=== PATIENT | male | born 1950 | race Caucasian/White ===

== ENCOUNTER 2017-11-12 06:21 | Inpatient (IN) | payer OTHER, MEDICARE ==
[~2017-11-12] VITALS: Ht 182.9 cm; Wt 69.5 kg
[~2017-11-12 06:21] MED LIST: AMLO5 PO; ASPI81CH PO; CALACE667G PO; CALCAVITD PO; CALCAVITDA PO; CIPR250 PO; CYCL25 PO; CYCLOPHOSPHAMIDE PO; Calcium Acetat667 MG PO; Cipro500 MG PO; DAPS100 PO; FAMO20 PO; LORA.5 PO; LOSA50 PO; METPRE4DP PO; OMEP20ER PO; OMEPRAZOLE MAGN20 MG PO; ONDA4 PO; PRED20 PO; QUET25 PO; RENAL VITAMIN0.8 MG PO; SERT100 PO; SERT25 PO; Super B-50 Com1 EACH PO; [UNRECOGNIZED DRUG - OTHER] PO
[2017-11-12 07:00] LABS: BASOPHILS ABSOLUTE AUTO 0.03 K/mm3 (0.00-0.23); BASOPHILS PERCENT AUTO 0 % (0-2); EOSINOPHILS PERCENT AUTO 0 % (0-6); Hematocrit 31.8 % (37.0-53.0); Hemoglobin 10.1 g/dL (13.5-17.5); IMMATURE GRAN ABSOLUTE AUTO 0.03 K/mm3 (0.00-0.10); IMMATURE GRAN PERCENT AUTO 0 % (0-1); LYMPHOCYTES ABSOLUTE AUTO 0.39 K/mm3 (0.84-5.20); LYMPHOCYTES PERCENT AUTO 5 % (21-46); MONOCYTES ABSOLUTE AUTO 0.47 K/mm3 (0.16-1.47); MONOCYTES PERCENT AUTO 5 % (4-13); Mean Corpuscular HGB 31.8 pg (26.0-34.0); Mean Corpuscular HGB Conc 31.8 g/dL (31.5-36.5); Mean Corpuscular Volume 100 fL (80-100); NEUTROPHILS ABSOLUTE AUTO 7.82 K/mm3 (1.96-9.15); NEUTROPHILS PERCENT AUTO 90 % (41-73); Platelet Count 253 K/mm3 (150-400); Red Blood Cell Count 3.18 M/mm3 (4.30-5.90); White Blood Cell Count 8.74 K/mm3 (4.00-11.30)
[2017-11-12 07:25] LABS: Magnesium, Blood 2.4 mg/dL (1.6-2.4); Troponin I 0.334 ng/mL (0.000-0.040)
[2017-11-12 07:30] LABS: Albumin, Blood 3.5 g/dL (3.4-5.0); Albumin/Globulin Ratio 0.8 (0.8-1.8); Bilirubin, Total 0.6 mg/dL (0.1-1.0); Bun/Creatinine Ratio 6.7 (12.0-20.0); Calcium, Blood 9.4 mg/dL (8.5-10.1); Creatinine, Blood 13.9 mg/dL (0.60-1.20); Globulin, Blood 4.3 g/dL (2.2-4.0); Phosphorus, Blood 4.1 mg/dL (2.5-4.9); Potassium, Blood 4.9 mmol/L (3.5-5.5); Total Protein, Blood 7.8 g/dL (6.4-8.2)
[2017-11-12 07:59] LABS: Influenza A Negative (NEGATIVE); Influenza B Negative (NEGATIVE)
[2017-11-13 05:36] LABS: BASOPHILS ABSOLUTE AUTO 0.03 K/mm3 (0.00-0.23); BASOPHILS PERCENT AUTO 0 % (0-2); EOSINOPHILS PERCENT AUTO 0 % (0-6); Hematocrit 28.2 % (37.0-53.0); Hemoglobin 8.9 g/dL (13.5-17.5); IMMATURE GRAN ABSOLUTE AUTO 0.02 K/mm3 (0.00-0.10); IMMATURE GRAN PERCENT AUTO 0 % (0-1); LYMPHOCYTES ABSOLUTE AUTO 0.48 K/mm3 (0.84-5.20); LYMPHOCYTES PERCENT AUTO 7 % (21-46); MONOCYTES ABSOLUTE AUTO 0.49 K/mm3 (0.16-1.47); MONOCYTES PERCENT AUTO 7 % (4-13); Mean Corpuscular HGB 31.3 pg (26.0-34.0); Mean Corpuscular HGB Conc 31.6 g/dL (31.5-36.5); Mean Corpuscular Volume 99 fL (80-100); Mean Platelet Volume 11.5 fL (9.1-12.4); NEUTROPHILS ABSOLUTE AUTO 6.35 K/mm3 (1.96-9.15); NEUTROPHILS PERCENT AUTO 86 % (41-73); Platelet Count 217 K/mm3 (150-400); RDW Coefficient Variation 15.1 % (11.7-14.2); RDW Standard Deviation 55.5 fL (35.1-46.3); Red Blood Cell Count 2.84 M/mm3 (4.30-5.90); White Blood Cell Count 7.37 K/mm3 (4.00-11.30)
[2017-11-13 06:18] LABS: Albumin, Blood 3.1 g/dL (3.4-5.0); Anion Gap 13 mmol/L (6-16); Blood Urea Nitrogen 73 mg/dL (8-24); Bun/Creatinine Ratio 6.3 (12.0-20.0); CO2, Blood 25 mmol/L (21-32); Calcium, Blood 8.4 mg/dL (8.5-10.1); Chloride, Blood 92 mmol/L (98-108); Glomerular Filtration Rate 5 (60-); Glucose, Blood 105 mg/dL (70-99); Phosphorus, Blood 4.9 mg/dL (2.5-4.9); Potassium, Blood 5.2 mmol/L (3.5-5.5); Sodium, Blood 130 mmol/L (136-145)
[2017-11-13 08:16] LABS: CHOL/HDL RATIO 2.8; Cholesterol 113 mg/dL (50-200); HDL Cholesterol 40 mg/dL (>39); LDL/HDL RATIO 1.2; Low Density Lipoprotein Chol 46 mg/dL (0-110); Triglycerides 133 mg/dL (30-160); Very Low Density Lipoprot Chol 26 mg/dL (6-32)
[2017-11-14 04:52] LABS: Source, Urine Voided
[2017-11-14 04:54] LABS: Bilirubin, Urine Neg (Neg); Blood, Urine 2+ (Neg); Glucose Qualitative, Urine Neg (Neg); Ketones, Urine Neg (Neg); Leukocyte Esterase, Urine Neg (Neg); Nitrite, Urine Neg (Neg); Protein, Urine 3+ (Neg); Urobilinogen, Urine NORM (Normal)
[2017-11-14 05:17] LABS: Appearance, Urine Clear (Clear); Color, Urine Yellow (P-Yellow)
[2017-11-14 05:20] LABS: Bacteria Not Seen /hpf; Red Blood Cells, Urine 0-2 /hpf (0-2); Squamous Epithelial Cells Not Seen /hpf (Few); White Blood Cells, Urine 0-2 /hpf (0-5)
[2017-11-14 05:29] LABS: BASOPHILS ABSOLUTE AUTO 0.02 K/mm3 (0.00-0.23); BASOPHILS PERCENT AUTO 0 % (0-2); EOSINOPHILS PERCENT AUTO 0 % (0-6); Hematocrit 30.6 % (37.0-53.0); Hemoglobin 9.8 g/dL (13.5-17.5); IMMATURE GRAN ABSOLUTE AUTO 0.05 K/mm3 (0.00-0.10); IMMATURE GRAN PERCENT AUTO 1 % (0-1); LYMPHOCYTES ABSOLUTE AUTO 1.03 K/mm3 (0.84-5.20); LYMPHOCYTES PERCENT AUTO 14 % (21-46); MONOCYTES ABSOLUTE AUTO 0.59 K/mm3 (0.16-1.47); MONOCYTES PERCENT AUTO 8 % (4-13); Mean Corpuscular HGB 31.3 pg (26.0-34.0); Mean Corpuscular Volume 98 fL (80-100); Mean Platelet Volume 11.6 fL (9.1-12.4); NEUTROPHILS ABSOLUTE AUTO 5.76 K/mm3 (1.96-9.15); NEUTROPHILS PERCENT AUTO 77 % (41-73); Platelet Count 232 K/mm3 (150-400); RDW Standard Deviation 54.4 fL (35.1-46.3); Red Blood Cell Count 3.13 M/mm3 (4.30-5.90); White Blood Cell Count 7.45 K/mm3 (4.00-11.30)
[2017-11-14 06:05] LABS: Magnesium, Blood 2.3 mg/dL (1.6-2.4)
[2017-11-14 06:20] LABS: Anion Gap 15 mmol/L (6-16); Blood Urea Nitrogen 69 mg/dL (8-24); CO2, Blood 26 mmol/L (21-32); Calcium, Blood 8.3 mg/dL (8.5-10.1); Chloride, Blood 92 mmol/L (98-108); Glucose, Blood 105 mg/dL (70-99); Phosphorus, Blood 6.2 mg/dL (2.5-4.9); Potassium, Blood 4.6 mmol/L (3.5-5.5); Sodium, Blood 133 mmol/L (136-145)
[2017-11-14 06:23] LABS: Bun/Creatinine Ratio 6.7 (12.0-20.0); Glomerular Filtration Rate 5 (60-)
[2017-11-14] MEDS ORDERED: ACET325 PO (09:02)
[2017-11-14] MEDS ORDERED: ALBU90OI INH (09:03)
[2017-11-14] MEDS ORDERED: ONDA4 PO (09:04)
[2017-11-14] MEDS ORDERED: LEVO750 PO (09:04)
[2017-11-14] MEDS ORDERED: SACC250C PO (09:04)
[2017-11-14] MEDS ORDERED: PROM25 PO (09:05)
[2017-11-14] MEDS ORDERED: FURO20 PO (15:31)
[2017-11-14 18:19] LABS: HCV Non Reactive (NR)
[2017-12-15] MEDS ORDERED: CARV3.125 PO (11:55)
== END 2017-11-14 16:15 | disposition home or self-care (01) | DRG 291 ==
LOC: ER 06:21 → MEDS 09:12 → ENPENDDIS 11-14 09:15 → MEDS 11-14 16:15
PROVIDERS: Internal Medicine
DX: I13.2 Hypertensive heart and chronic kidney disease with heart failure and with stage 5 chronic kidney disease, or end stage renal disease (principal); N18.6 End stage renal disease; J18.9 Pneumonia, unspecified organism; I50.21 Acute systolic (congestive) heart failure; N17.9 Acute kidney failure, unspecified; M30.0 Polyarteritis nodosa; I12.0 Hypertensive chronic kidney disease with stage 5 chronic kidney disease or end stage renal disease; D63.1 Anemia in chronic kidney disease; Z99.2 Dependence on renal dialysis; Z91.15 Patient's noncompliance with renal dialysis; E83.39 Other disorders of phosphorus metabolism; Z87.891 Personal history of nicotine dependence
CPT/HCPCS: 36415; 71046; 74176; 80053; 80061; 80069; 80074; 81001; 83605; 83690; 83735; 83880; 84100; 84484; 85025; 86706; 87040; 87086; 87804; 93005; 93010; 93306; 94640; 94760; 96365; 96375; 96376; 99285; C9113; J0456; J0696; J0881; J1650; J2405; J2550; J7050; J7120

== ENCOUNTER 2017-12-16 02:19 | Observation (INO) | payer OTHER, MEDICARE ==
[~2017-12-16] VITALS: Ht 182.9 cm; Wt 70.7 kg
[~2017-12-16 02:19] MED LIST changes: +ACET325 PO; +ALBU90OI INH; +CARV3.125 PO; +FURO20 PO; +LEVO750 PO; +PROM25 PO; +SACC250C PO
[2017-12-17 03:49] LABS: Hematocrit 26.7 % (37.0-53.0); Hemoglobin 8.4 g/dL (13.5-17.5)
[2017-12-17 04:08] LABS: Albumin, Blood 2.5 g/dL (3.4-5.0); Anion Gap 10 mmol/L (6-16); Blood Urea Nitrogen 43 mg/dL (8-24); Bun/Creatinine Ratio 6.2 (12.0-20.0); CO2, Blood 30 mmol/L (21-32); Calcium, Blood 8.6 mg/dL (8.5-10.1); Chloride, Blood 99 mmol/L (98-108); Creatinine, Blood 6.88 mg/dL (0.60-1.20); Glomerular Filtration Rate 9 (60-); Glucose, Blood 97 mg/dL (70-99); Magnesium, Blood 2.1 mg/dL (1.6-2.4); Phosphorus, Blood 3.6 mg/dL (2.5-4.9); Potassium, Blood 4.1 mmol/L (3.5-5.5); Sodium, Blood 139 mmol/L (136-145)
[2017-12-17] MEDS ORDERED: CLOP75 PO (11:10)
[2017-12-17] MEDS ORDERED: ATOR40TA PO (11:11)
== END 2017-12-17 14:00 | disposition home or self-care (01) ==
LOC: MHTC 02:19 → ICUW 08:47 → MHTC 09:09 → ICUW 09:09
PROVIDERS: Internal Medicine Nephrology
DX: I13.2 Hypertensive heart and chronic kidney disease with heart failure and with stage 5 chronic kidney disease, or end stage renal disease (principal); I50.22 Chronic systolic (congestive) heart failure; N18.6 End stage renal disease; I25.10 Atherosclerotic heart disease of native coronary artery without angina pectoris; N25.81 Secondary hyperparathyroidism of renal origin; R94.39 Abnormal result of other cardiovascular function study; E86.9 Volume depletion, unspecified; E88.09 Other disorders of plasma-protein metabolism, not elsewhere classified; Z99.2 Dependence on renal dialysis; Z79.82 Long term (current) use of aspirin; Z79.02 Long term (current) use of antithrombotics/antiplatelets; Z79.899 Other long term (current) drug therapy; Z87.891 Personal history of nicotine dependence
CPT/HCPCS: 36415; 36430; 80069; 83735; 85014; 85018; 85347; 86850; 86900; 86901; 86923; 92978; 93005; 93010; 93460; 93571; 96372; 99152; 99153; C1725; C1769; C1874; C1894; C9600; G0257; G0378; J0360; J0881; J1644; J2250; J2720; J3010; J7030; P9016; Q9967

== ENCOUNTER → 2018-01-11 | Outpatient (CLI) | payer MEDICARE, OTHER ==
[~2018-01-11] MED LIST changes: +ATOR40TA PO; +CLOP75 PO
[2018-01-11 16:17] LABS: Hematocrit 27.3 % (37.0-53.0); Hemoglobin 8.7 g/dL (13.5-17.5)
== END | disposition home or self-care (01) ==
LOC: LAB DAV 16:10 → LAB SHORT 16:10
PROVIDERS: Internal Medicine Nephrology
DX: D64.9 Anemia, unspecified (principal)
CPT/HCPCS: 85014; 85018

== ENCOUNTER 2018-12-27 09:05 | Inpatient (IN) | payer MEDICARE, OTHER ==
[~2018-12-27] VITALS: Ht 180.3 cm; Wt 61.1 kg
[~2018-12-27 09:05] MED LIST changes: +CETI5 PO; +PANT40 PO
--- NOTE | 2018-12-27 09:50 | NUR ---
PATIENT GAVE PERMISSION FOR ME TO CARE FOR HIM TODAY 12/27/18. History, Chart, Medications and Allergies reviewed before start of procedure.Patient confirms NPO status and agrees with scheduled surgery. Patient reports completing Chlorhexadine shower X2 prior to admission to hospital.Surgical site prepped with 2% Chlorhexidine cloth wipe.COARSE LUNGS SOUNDS BILATERALLY UPPER LOBES.
--- NOTE | 2018-12-27 11:11 | NUR ---
STUDENT RN ASSISTING WITH PREOP CARE THIS AM. AGREE WITH HER CHARTING AND CARE.
--- NOTE | 2018-12-27 13:47 | NUR ---
12/27/18 1347 Andrei Belle ANESTHESIA WAS INITIALLY A SPINAL BUT PATIENT DID NOT TOLERATE SURGERY SO DR. CRUZ PLACED A LMA
--- NOTE | 2018-12-27 19:21 | NUR ---
SHIFT SUMMARY PT HAS STRUGGLED WITH N/V POST OP. SURG SITE WNL. SOME RESIDUAL NUMBNESS/TING IN LLE. BUT C/O 8/10 PAIN IN L HIP.
[2018-12-28 05:51] LABS: BASOPHILS ABSOLUTE AUTO 0.02 K/mm3 (0.00-0.23); BASOPHILS PERCENT AUTO 0 % (0-2); EOSINOPHILS ABSOLUTE AUTO 0.13 K/mm3 (0.00-0.68); EOSINOPHILS PERCENT AUTO 1 % (0-6); Hematocrit 30.7 % (37.0-53.0); Hemoglobin 9.5 g/dL (13.5-17.5); IMMATURE GRAN ABSOLUTE AUTO 0.05 K/mm3 (0.00-0.10); IMMATURE GRAN PERCENT AUTO 0 % (0-1); LYMPHOCYTES ABSOLUTE AUTO 0.57 K/mm3 (0.84-5.20); LYMPHOCYTES PERCENT AUTO 5 % (21-46); MONOCYTES ABSOLUTE AUTO 1.19 K/mm3 (0.16-1.47); MONOCYTES PERCENT AUTO 10 % (4-13); Mean Corpuscular HGB Conc 30.9 g/dL (31.5-36.5); Mean Platelet Volume 10.8 fL (9.1-12.4); NEUTROPHILS ABSOLUTE AUTO 10.52 K/mm3 (1.96-9.15); NEUTROPHILS PERCENT AUTO 84 % (41-73); Platelet Count 253 K/mm3 (150-400); RDW Coefficient Variation 16.6 % (11.7-14.2); RDW Standard Deviation 59.2 fL (35.1-46.3); Red Blood Cell Count 3.17 M/mm3 (4.30-5.90); White Blood Cell Count 12.48 K/mm3 (4.00-11.30)
[2018-12-28 05:52] LABS: Mean Corpuscular Volume 97 fL (80-100)
[2018-12-28 06:19] LABS: Magnesium, Blood 2.1 mg/dL (1.6-2.4)
[2018-12-28 06:24] LABS: Bun/Creatinine Ratio 9.2 (12.0-20.0); Calcium, Blood 9.2 mg/dL (8.5-10.1); Creatinine, Blood 9.36 mg/dL (0.60-1.20); Potassium, Blood 5.4 mmol/L (3.5-5.5)
--- NOTE | 2018-12-28 07:29 | NUR ---
SHIFT SUMMARY PT IS POD 1 ELECTIVE LEFT PAMELA. MEDICATED FOR PAIN OVERNIGHT PER EMAR. HE DID HAVE SOME NAUSEA EARLY IN THE EVENING AND THEN AGAIN THIS MORNING WHEN HE GOT UP. HE IS AN ESRD AND HD PATIENT AND REPORTS HE ONLY URINATES TWICE A DAY AT BASELINE AND HE DID NOT PEE LAST NIGHT AT ALL. GOT HIM UP THIS MORNING TO TRY TO ASSIST WITHOUT RESULTS. BLADDER SCAN WAS 367ML THIS AM, HE RAN GENTLE HYDRATION OF 50ML/HR OVERNIGHT. THIS WAS PASSED ON TO DAY SHIFT, HE WILL BE STRAIGHT CATH'D IF HE STILL CANNOT VOID. DRESSING CHANGED TO AQUACEL THIS AM WITH AMELIA'S ROUNDS. REPORT PASSED TO ONCOMING SHIFT.
[2018-12-28] MEDS ORDERED: Percocet 5-3251 EACH PO (14:36)
[2018-12-28] MEDS ORDERED: Vancocin HCL1000 M1 (14:36)
[2018-12-28] MEDS ORDERED: ANCEF 1 GM1 GM/50 ML (14:37)
--- NOTE | 2018-12-28 15:45 | NUR ---
DISCHARGE PT HAS CLEARED THERAPY, DRSGS & SCRIPTS GIVEN, VOIDED ONCE, CONTACTED DIALYSIS AND FAXED ORDER. DR GRANADOS TO DOSE [facility] AND [facility] PER THEIR POLICY. AND PT STATES UNDERSTANDING.
== END 2018-12-28 15:35 | disposition home or self-care (01) | DRG 469 ==
LOC: SURS 09:05 → PRE IP 10:30 → SURS 13:53
PROVIDERS: ADMIT Orthopaedic Surgery
PROC: 5A1D70Z Performance of Urinary Filtration, Intermittent, Less than 6 Hours Per Day (ICD-10-PCS; 2018-12-27)
PROC: 0SRB04A Replacement of Left Hip Joint with Ceramic on Polyethylene Synthetic Substitute, Uncemented, Open Approach (ICD-10-PCS; principal; 2018-12-27 10:30)
DX: M16.12 Unilateral primary osteoarthritis, left hip (principal); N18.6 End stage renal disease; Z99.2 Dependence on renal dialysis; I50.9 Heart failure, unspecified; J43.9 Emphysema, unspecified; F32.9 Major depressive disorder, single episode, unspecified; F41.9 Anxiety disorder, unspecified; Z87.891 Personal history of nicotine dependence; I25.10 Atherosclerotic heart disease of native coronary artery without angina pectoris; Z95.5 Presence of coronary angioplasty implant and graft
CPT/HCPCS: 36415; 72170; 80048; 83735; 84132; 85025; 88300; 88304; 97110; 97116; 97162; 97165; 97530; 97535; C1713; C1776; J0171; J0690; J1170; J1885; J2250; J2405; J2704; J2795; J3010; J3370; J7030

== ENCOUNTER → 2018-12-30 | Outpatient (CLI) | payer MEDICARE, OTHER ==
[~2018-12-30] MED LIST changes: +ANCEF 1 GM1 GM/50 ML; +Percocet 5-3251 EACH PO; +Vancocin HCL1000 M1
[2018-12-30 14:51] LABS: Vancomycin, Random 7.6 ug/mL
== END | disposition home or self-care (01) ==
LOC: LAB SHORT 14:00 → LAB 14:00
PROVIDERS: Internal Medicine Nephrology
DX: N18.6 End stage renal disease (principal)
CPT/HCPCS: 80202

== ENCOUNTER 2019-02-06 08:00 | Day surgery (SDC) | payer MEDICARE, OTHER ==
[2019-05-15] MEDS ORDERED: Aspir 8181 MG PO (11:57)
[2019-05-15] MEDS ORDERED: Seroquel50 MG PO (11:58)
[2019-05-15] MEDS ORDERED: Coreg12.5 MG PO (11:59)
[2019-05-15] MEDS ORDERED: CLOP75 PO (12:00)
[2019-05-15] MEDS ORDERED: ATOR10 PO (12:00)
== END 2019-02-06 15:00 | disposition home or self-care (01) ==
LOC: ATC 08:00
DX: N18.6 End stage renal disease (principal); D63.1 Anemia in chronic kidney disease
CPT/HCPCS: 36415; 36430; 86850; 86900; 86901; 86923; J7050; P9016

== ENCOUNTER 2019-02-19 14:58 | Emergency (ER) | payer MEDICARE, OTHER ==
[2019-05-15] MEDS ORDERED: Aspir 8181 MG PO (11:57)
[2019-05-15] MEDS ORDERED: Seroquel50 MG PO (11:58)
[2019-05-15] MEDS ORDERED: Coreg12.5 MG PO (11:59)
[2019-05-15] MEDS ORDERED: ATOR10 PO (12:00)
[2019-05-15] MEDS ORDERED: CLOP75 PO (12:00)
== END 2019-02-19 15:55 | disposition left against medical advice (07) ==
LOC: ER 14:58
DX: Z53.21 Procedure and treatment not carried out due to patient leaving prior to being seen by health care provider (principal)

== ENCOUNTER → 2019-04-09 | Outpatient (CLI) | payer MEDICARE, OTHER ==
[~2019-04-09] MED LIST changes: +ATOR10 PO; +Aspir 8181 MG PO; +CARV6.25 PO; +Coreg12.5 MG PO; +Doxycycline Hy100 MG; +ESCI10 PO; +FURO40 PO; +METO25 PO; +MYCO250 PO; +Norco 5-325 Ta1 EACH PO; +OMEPRAZOLE20 MG PO; +POTA10T PO; +Seroquel50 MG PO; +TRAM50 PO
== END | disposition home or self-care (01) ==
LOC: LAB SHORT 07:44 → PLD 07:44
DX: L30.8 Other specified dermatitis (principal)
CPT/HCPCS: 88305; 88312

== ENCOUNTER 2019-05-02 08:02 | Day surgery (SDC) | payer MEDICARE, OTHER ==
[~2019-05-02] VITALS: Ht 180.3 cm; Wt 63.6 kg
[~2019-05-02 08:02] MED LIST changes: -ATOR10 PO; -Aspir 8181 MG PO; -CARV6.25 PO; -Coreg12.5 MG PO; -Doxycycline Hy100 MG; -ESCI10 PO; -FURO40 PO; -METO25 PO; -MYCO250 PO; -Norco 5-325 Ta1 EACH PO; -OMEPRAZOLE20 MG PO; -POTA10T PO; -Seroquel50 MG PO; -TRAM50 PO
[2019-05-15] MEDS ORDERED: Aspir 8181 MG PO (11:57)
[2019-05-15] MEDS ORDERED: Seroquel50 MG PO (11:58)
[2019-05-15] MEDS ORDERED: Coreg12.5 MG PO (11:59)
[2019-05-15] MEDS ORDERED: CLOP75 PO (12:00)
[2019-05-15] MEDS ORDERED: ATOR10 PO (12:00)
== END 2019-05-02 10:25 | disposition home or self-care (01) ==
LOC: ORSCSDS 08:02
PROVIDERS: Ophthalmology
PROC: 08RJ3JZ Replacement of Right Lens with Synthetic Substitute, Percutaneous Approach (ICD-10-PCS; principal; 2019-05-02 09:30)
DX: H25.11 Age-related nuclear cataract, right eye (principal); E11.9 Type 2 diabetes mellitus without complications; E03.9 Hypothyroidism, unspecified; Z87.891 Personal history of nicotine dependence; Z79.899 Other long term (current) drug therapy
CPT/HCPCS: 82947; J2001; J2250; J3010; J3301; J7030; J7120; V2632

== ENCOUNTER 2019-05-23 06:50 | Day surgery (SDC) | payer MEDICARE, OTHER ==
[~2019-05-23] VITALS: Ht 180.3 cm; Wt 61.8 kg
[~2019-05-23 06:50] MED LIST changes: +ATOR10 PO; +Aspir 8181 MG PO; +Coreg12.5 MG PO; +Seroquel50 MG PO
== END 2019-05-23 08:35 | disposition home or self-care (01) ==
LOC: ORSCSDS 06:50
PROVIDERS: Ophthalmology
PROC: 08RK3JZ Replacement of Left Lens with Synthetic Substitute, Percutaneous Approach (ICD-10-PCS; principal; 2019-05-23 08:00)
DX: H25.12 Age-related nuclear cataract, left eye (principal); I10 Essential (primary) hypertension; Z79.82 Long term (current) use of aspirin; Z79.899 Other long term (current) drug therapy
CPT/HCPCS: J2001; J2250; J2405; J3010; J3301; J7120; V2632

== ENCOUNTER 2019-06-08 11:46 | Emergency (ER) | payer OTHER, MEDICARE ==
[~2019-06-08] VITALS: Ht 180.3 cm; Wt 61.2 kg
[2019-06-08] MEDS ORDERED: Doxycycline Hy100 MG (13:00)
[2019-06-08 14:10] LABS: BASOPHILS ABSOLUTE AUTO 0.06 K/mm3 (0.00-0.23); BASOPHILS PERCENT AUTO 1 % (0-2); EOSINOPHILS ABSOLUTE AUTO 0.93 K/mm3 (0.00-0.68); EOSINOPHILS PERCENT AUTO 11 % (0-6); Hematocrit 27.8 % (37.0-53.0); Hemoglobin 8.8 g/dL (13.5-17.5); IMMATURE GRAN ABSOLUTE AUTO 0.04 K/mm3 (0.00-0.10); IMMATURE GRAN PERCENT AUTO 1 % (0-1); LYMPHOCYTES ABSOLUTE AUTO 1.22 K/mm3 (0.84-5.20); LYMPHOCYTES PERCENT AUTO 15 % (21-46); MONOCYTES ABSOLUTE AUTO 0.76 K/mm3 (0.16-1.47); MONOCYTES PERCENT AUTO 9 % (4-13); Mean Corpuscular HGB Conc 31.7 g/dL (31.5-36.5); Mean Corpuscular Volume 101 fL (80-100); Mean Platelet Volume 10.5 fL (9.1-12.4); NEUTROPHILS ABSOLUTE AUTO 5.29 K/mm3 (1.96-9.15); NEUTROPHILS PERCENT AUTO 64 % (41-73); Platelet Count 266 K/mm3 (150-400); RDW Coefficient Variation 17.4 % (11.7-14.2); RDW Standard Deviation 63.2 fL (35.1-46.3); Red Blood Cell Count 2.75 M/mm3 (4.30-5.90)
[2019-06-08 14:37] LABS: Bun/Creatinine Ratio 16.5 (12.0-20.0); Calcium, Blood 9.6 mg/dL (8.5-10.1); Creatinine, Blood 9.77 mg/dL (0.60-1.20); Potassium, Blood 4.3 mmol/L (3.5-5.5)
[2019-06-08] MEDS ORDERED: FURO40 PO (14:55)
[2019-06-08] MEDS ORDERED: METO25 PO (14:55)
[2019-06-08] MEDS ORDERED: ESCI10 PO (14:55)
[2019-06-08] MEDS ORDERED: OMEPRAZOLE20 MG PO (14:56)
[2019-06-08] MEDS ORDERED: MYCO250 PO (14:56)
[2019-06-08] MEDS ORDERED: POTA10T PO (14:56)
[2019-06-08] MEDS ORDERED: TRAM50 PO (14:57)
[2019-06-08] MEDS ORDERED: PRED20 PO (14:57)
[2019-06-08] MEDS ORDERED: Norco 5-325 Ta1 EACH PO (15:09)
[2019-06-08] MEDS ORDERED: CARV6.25 PO (15:19)
== END 2019-06-08 16:04 | disposition home or self-care (01) ==
LOC: ER 11:46
PROVIDERS: Emergency Medicine
DX: I72.1 Aneurysm of artery of upper extremity (principal); M96.840 Postprocedural hematoma of a musculoskeletal structure following a musculoskeletal system procedure; I12.0 Hypertensive chronic kidney disease with stage 5 chronic kidney disease or end stage renal disease; N18.6 End stage renal disease; Z99.2 Dependence on renal dialysis; Z87.891 Personal history of nicotine dependence; Z91.048 Other nonmedicinal substance allergy status; Z79.899 Other long term (current) drug therapy; Z79.82 Long term (current) use of aspirin; Z79.02 Long term (current) use of antithrombotics/antiplatelets
CPT/HCPCS: 36415; 76882; 80048; 85025; 96374; 96375; 99284-25; J2405; J3010

== ENCOUNTER 2019-08-01 11:31 | Inpatient (IN) | payer MEDICARE, OTHER ==
[~2019-08-01] VITALS: Ht 180.3 cm; Wt 60.2 kg
[~2019-08-01 11:31] MED LIST changes: -ATOR10 PO; -Aspir 8181 MG PO; -Calcium Acetat667 MG PO; +Doxycycline Hy100 MG; +ESCI10 PO; +FURO40 PO; -LOSA50 PO; +METO25 PO; +MYCO250 PO; +Norco 5-325 Ta1 EACH PO; +OMEPRAZOLE20 MG PO; +POTA10T PO; -RENAL VITAMIN0.8 MG PO; -SERT100 PO; -Seroquel50 MG PO; +TRAM50 PO
[2019-08-01 12:50] LABS: Calcium, Ionized (POC) 1.07 mmol/L (1.10-1.46); Chloride (POC) 91 mmol/L (98-108); Creatinine (POC) 10.7 mg/dL (0.8-1.3); Glucose (ISTAT POC) 106 mg/dL (70-99); Hemoglobin (POC) 12.9 g/dL (13.5-17.5); Potassium (POC) 4.3 mmol/L (3.5-5.5); Sodium (POC) 136 mmol/L (135-148); Total CO2 (POC) 36 mmol/L (21-32)
[2019-08-01 12:56] LABS: BASOPHILS ABSOLUTE AUTO 0.04 K/mm3 (0.00-0.23); BASOPHILS PERCENT AUTO 0 % (0-2); EOSINOPHILS ABSOLUTE AUTO 0.74 K/mm3 (0.00-0.68); EOSINOPHILS PERCENT AUTO 8 % (0-6); Hematocrit 37.5 % (37.0-53.0); Hemoglobin 11.5 g/dL (13.5-17.5); IMMATURE GRAN ABSOLUTE AUTO 0.03 K/mm3 (0.00-0.10); IMMATURE GRAN PERCENT AUTO 0 % (0-1); LYMPHOCYTES ABSOLUTE AUTO 0.76 K/mm3 (0.84-5.20); LYMPHOCYTES PERCENT AUTO 8 % (21-46); MONOCYTES ABSOLUTE AUTO 1.26 K/mm3 (0.16-1.47); MONOCYTES PERCENT AUTO 13 % (4-13); Mean Corpuscular HGB 31.8 pg (26.0-34.0); Mean Corpuscular HGB Conc 30.7 g/dL (31.5-36.5); Mean Corpuscular Volume 104 fL (80-100); Mean Platelet Volume 10.3 fL (9.1-12.4); NEUTROPHILS ABSOLUTE AUTO 6.67 K/mm3 (1.96-9.15); NEUTROPHILS PERCENT AUTO 70 % (41-73); Platelet Count 272 K/mm3 (150-400); RDW Coefficient Variation 14.9 % (11.7-14.2); RDW Standard Deviation 57.2 fL (35.1-46.3); Red Blood Cell Count 3.62 M/mm3 (4.30-5.90)
[2019-08-01 13:34] LABS: Albumin, Blood 3.7 g/dL (3.4-5.0); Albumin/Globulin Ratio 0.9 (0.8-1.8); Bilirubin, Total 0.5 mg/dL (0.1-1.0); Bun/Creatinine Ratio 11.5 (12.0-20.0); Creatinine, Blood 9.63 mg/dL (0.60-1.20); Globulin, Blood 3.9 g/dL (2.2-4.0); Potassium, Blood 4.2 mmol/L (3.5-5.5); Total Protein, Blood 7.6 g/dL (6.4-8.2)
[2019-08-01] MEDS ORDERED: LOSA50 PO (14:17)
[2019-08-01] MEDS ORDERED: Oxycodone-Apap1 EAC3 PO (14:18)
[2019-08-01] MEDS ORDERED: ATOR10 PO (14:19)
[2019-08-01] MEDS ORDERED: TEMA15 PO (14:19)
[2019-08-01] MEDS ORDERED: CARVEDILOL12.5 MG PO (14:21)
[2019-08-01] MEDS ORDERED: PANTOPRAZOLE SO40 M2 PO (14:22)
[2019-08-01] MEDS ORDERED: Calcium Acetat667 MG PO (14:22)
[2019-08-01] MEDS ORDERED: Aspir 8181 MG PO (14:23)
[2019-08-01] MEDS ORDERED: LORA.5 PO (16:07)
[2019-08-01] MEDS ORDERED: Seroquel Xr50 MG PO (16:09)
--- NOTE | 2019-08-01 16:11 | NUR ---
ADMIT TO SURGICAL FLOOR PT ADMITTED TO SURGICAL FLOOR FROM ED AT 1530. SPOUSE AT BEDSIDE. ON 2L 02 WITH SPO2 AT 96%, DENIES SOB. REPORTS SOME N/V. DENIES ANY N/T. ABLE TO TRANSFER SELF FROM GURNEY TO BED. DENIES NEED FOR PAIN MEDICATION AND STATES PAIN IS TOLERABLE. CURRENTLY RESTING IN BED WITH CALL LIGHT IN REACH. WILL CONTINUE TO MONITOR WHILE AWAITING ORDERS.
[2019-08-01] MEDS ORDERED: SERT100 PO (17:04)
[2019-08-01] MEDS ORDERED: RENAL VITAMIN0.8 MG PO (17:05)
[2019-08-01] MEDS ORDERED: Cetirizine HCl10 MG PO (17:06)
[2019-08-01] MEDS ORDERED: HYDHCL25 PO (17:08)
[2019-08-01] MEDS ORDERED: BIOTIN5 MG PO (17:10)
[2019-08-01] MEDS ORDERED: FERRIC CITRATE210 MG PO (17:11)
--- NOTE | 2019-08-02 03:25 | NUR ---
PT HYPERVENTILATING WHILE SITTING IN CHAIR. O2 DROPPING INTO 60'S ON 4LO2. O2 INCREASED TO 8LO2 WHICH INCREASED SATS TO 90%. PT NAUSEATED AND VOMITING INTERMITENTING. PT DIAPHORETIC AND LETHARGIC. BP LOW FOR PT. HR ELEVATED. WILL CTM VS Q30MIN
[2019-08-02 03:56] LABS: Hematocrit 40.2 % (37.0-53.0); Hemoglobin 12.2 g/dL (13.5-17.5)
[2019-08-02 04:40] LABS: Albumin, Blood 3.6 g/dL (3.4-5.0); Anion Gap 22 mmol/L (6-16); Blood Urea Nitrogen 120 mg/dL (8-24); Bun/Creatinine Ratio 11.1 (12.0-20.0); CO2, Blood 24 mmol/L (21-32); Calcium, Blood 9.8 mg/dL (8.5-10.1); Chloride, Blood 90 mmol/L (98-108); Glomerular Filtration Rate 5 (60-); Glucose, Blood 135 mg/dL (70-99); Phosphorus, Blood 6.3 mg/dL (2.5-4.9); Potassium, Blood 4.7 mmol/L (3.5-5.5); Sodium, Blood 136 mmol/L (136-145)
--- NOTE | 2019-08-02 04:40 | NUR ---
PT BECOMING MORE LETHARGIC AND HYPOTENSIVE. BP 86/51. HR IN 90'S. O2 AT 90% ON 8LO2. SPOKE WITH DR. BARKLEY. NEW ORDER FOR STAT CHEST XRAY, EKG, H&H, TROPONINS AND 500CC BOLUS OF NS. INSTRUCTED TO TAKE ANOTHER BP AND CALL BACK.
--- NOTE | 2019-08-02 04:55 | NUR ---
PT AWAITING CHEST X RAY. DR BARKLEY ON HIS WAY TO SEE PT.
[2019-08-02 05:18] LABS: Hematocrit 37.5 % (37.0-53.0); Hemoglobin 11.8 g/dL (13.5-17.5)
--- NOTE | 2019-08-02 06:30 | NUR ---
PT ARRIVED TO ICU 4 FROM SURGICAL FLOOR. PT IS AWAKE, A/O X4. BP STABLE. SPO2 97% ON 5L OXYMIZER. PT TRANSFERS SELF TO BED. HAS PAIN WHEN GETTING OOB BUT TRANSFERS FINE AND IS FINE WHEN HE IS RESTING IN BED. NO SIGN OF DISTRESS. WILL REPORT TO ONCOMING RN.
--- NOTE | 2019-08-02 07:21 | NUR ---
ASSUMED CARE REPORT FROM MAGDALENA GRIFFITH. PATIENT C/O 04/14 PAIN LEFT RIBS. VOMITED APPROX 200 CC GREEN EMESIS. FENTANYL 25 MCG IV GIVEN AND ZOFRAN 4 MG GIVEN. ORAL CARE PROVIDED WELL WARM WASH CLOTH AND ORAL CARE.
--- NOTE | 2019-08-02 08:00 | NUR ---
MD VISIT DR. GRANADOS IN. DIALYSIS AND ECHO ORDERED
--- NOTE | 2019-08-02 12:35 | NUR ---
MD VISIT DR. SANTOS IN. CHANGED TO U STATS AND ORDERED INCENTIVE SPIROMETER
--- NOTE | 2019-08-02 17:46 | NUR ---
REPORT GIVEN TO MAGDALENA TO. PT TX'D IN W ON 5L OXYMIZER TO PCU 4. CONTINUES TO HAVE FREQUENT BOUTS OF VOMITING.
--- NOTE | 2019-08-02 18:28 | NUR ---
SHIFT SUMMARY PT WAS TRANSFERRED FROM ICU TO PCU 4 AT 1750. PT CONTINUES TO HAVE NAUSEA AND VOMITING, GREEN EMESIS IS NOTED. PT ALSO C/O LEFT CHEST/RIB PAIN AND ARRIVED ON 8L OXYMIZER. PT WAS TRANSFERRED TO BED FROM WHEELCHAIR WITH MINIMAL ASSIST. PER REPORT, PT HAD JUST COMPLETED DIALYSIS PRIOR TO TRANSFER AND 1.5L OF FLUID WAS REMOVED. PT WAS ORIENTED TO UNIT AND UPDATED ON PLAN OF CARE AND WHEN SHIFT CHANGE HAPPENS.
[2019-08-03 03:47] LABS: Hematocrit 33.5 % (37.0-53.0); Hemoglobin 10.4 g/dL (13.5-17.5); Mean Corpuscular HGB 31.9 pg (26.0-34.0); Mean Corpuscular Volume 103 fL (80-100); Mean Platelet Volume 10.5 fL (9.1-12.4); Platelet Count 231 K/mm3 (150-400); RDW Coefficient Variation 15.1 % (11.7-14.2); RDW Standard Deviation 56.9 fL (35.1-46.3); Red Blood Cell Count 3.26 M/mm3 (4.30-5.90); White Blood Cell Count 19.73 K/mm3 (4.00-11.30)
--- NOTE | 2019-08-03 04:06 | NUR ---
SHIFT SUMMARY PATIENT SLEPT OFF AN ON THROUGH NIGHT. PAIN WELL MANAGED WITH AVAILABLE FENTANYL, NAUSEA IMPROVED DRASTICALLY WITH PRN PHENERGAN. OXYGEN REQUIREMENTS DECREASED, DOWN TO 1L NC NOW. VSS. WILL CONTINUE TO MONITOR.
[2019-08-03 04:09] LABS: Albumin, Blood 3.3 g/dL (3.4-5.0); Anion Gap 12 mmol/L (6-16); Blood Urea Nitrogen 74 mg/dL (8-24); Bun/Creatinine Ratio 9.5 (12.0-20.0); CO2, Blood 34 mmol/L (21-32); Calcium, Blood 9.1 mg/dL (8.5-10.1); Chloride, Blood 89 mmol/L (98-108); Creatinine, Blood 7.78 mg/dL (0.60-1.20); Glomerular Filtration Rate 7 (60-); Glucose, Blood 79 mg/dL (70-99); Magnesium, Blood 2.1 mg/dL (1.6-2.4); Phosphorus, Blood 7.5 mg/dL (2.5-4.9); Potassium, Blood 4.8 mmol/L (3.5-5.5); Sodium, Blood 135 mmol/L (136-145)
[2019-08-03 05:23] LABS: BAND PERCENT MAN 27 % (0-8); BASOPHILS PERCENT MAN 0 % (0-2); EOSINOPHILS PERCENT MAN 0 % (0-6); LYMPHOCYTES ABSOLUTE MAN 0.59 K/mm3 (0.84-5.20); LYMPHOCYTES PERCENT MAN 3 % (21-46); METAMYELOCYTE ABSOLUTE MAN 0.19 K/mm3 (0.00-0.00); METAMYELOCYTE PERCENT MAN 1 % (0-0); MONOCYTES ABSOLUTE MAN 1.97 K/mm3 (0.16-1.47); MONOCYTES PERCENT MAN 10 % (4-13); NEUTROPHILS ABSOLUTE MAN 16.96 K/mm3 (1.96-9.15); SEG NEUTROPHILS PERCENT MAN 59 % (41-73); TOTAL CELLS COUNTED 100
--- NOTE | 2019-08-03 19:22 | NUR ---
SHIFT SUMMARY PAIN CONTROL HAS IMPROVED TODAY FOR PT WITH ONLY REQUIRING ORAL PAIN MEDICATIONS. PT HAS ALSO HAD IMPROVEMENT IN NAUSEA/VOMITING AND HAS BEEN ABLE TO KEEP DOWN SOME FOOD, HOWEVER PT STILL HASN'T HAD A FULL APPETITE TO EAT MEALS. ATTEMPTED TO WEAN PT OFF OF O2 TODAY, BUT PT HAS NEEDED 1-2L OXYMIZER. ENCOURAGED PT TO USE INCENTIVE SPIROMETER AND DISCUSSED PAIN CONTROL MEASURES WHILE TAKING DEEP BREATHS. PT HAS BEEN SINUS RTHYMN ON TELEMETRY.
--- NOTE | 2019-08-03 19:30 | NUR ---
OPENING NOTE RECEIVED REPORT FROM ZULEIKA NICHOLS AND ASSUMED PT CARE. PT IS RESTING IN BED, DENIES COMPLAINTS AT THIS TIME. NO ACUTE CONCERNS, WILL MONITOR AND CONTINUE PLAN OF CARE.
[2019-08-04 03:50] LABS: Hematocrit 33.2 % (37.0-53.0); Hemoglobin 10.5 g/dL (13.5-17.5)
[2019-08-04 04:13] LABS: Magnesium, Blood 2.3 mg/dL (1.6-2.4)
[2019-08-04 04:16] LABS: Albumin, Blood 3.1 g/dL (3.4-5.0); Anion Gap 15 mmol/L (6-16); Blood Urea Nitrogen 104 mg/dL (8-24); Bun/Creatinine Ratio 11.2 (12.0-20.0); CO2, Blood 32 mmol/L (21-32); Calcium, Blood 9.1 mg/dL (8.5-10.1); Chloride, Blood 87 mmol/L (98-108); Creatinine, Blood 9.32 mg/dL (0.60-1.20); Glomerular Filtration Rate 6 (60-); Glucose, Blood 88 mg/dL (70-99); Phosphorus, Blood 6.9 mg/dL (2.5-4.9); Potassium, Blood 4.6 mmol/L (3.5-5.5); Sodium, Blood 134 mmol/L (136-145)
--- NOTE | 2019-08-04 06:28 | NUR ---
SHIFT SUMMARY PT HAS RESTED WELL THROUGH SHIFT, AWAKENS EASILY TO VOICE. C/O PAIN DURING EARLY PART OF SHIFT WITH GOOD RELIEF AFTER PRN MED (SEE MAR). VSS, SEE ASSESSMENT FOR DETAILS. OVERALL STATUS: IMPROVED R/T REDUCED O2 NEEDS, TITRATED DOWN TO 1-2 L/MIN NC OFF OF OXYMIZER. EXPECT POSSIBLE STATUS CHANGE TODAY, NO ACUTE CONCERNS. WILL PROVIDE BEDSIDE REPORT TO ONCOMING RN.
--- NOTE | 2019-08-04 06:50 | NUR ---
MD CALL CALLED CELL # AND LEFT MESSAGE REQUESTING RETURN CALL FROM DR. GRANADOS. PT HAS BEEN UNABLE TO VOID AND BLADDER SCAN SHOWS 353 ML. PT STATES "I'LL TRY AGAIN IN A LITTLE WHILE, I WILL NOT LET YOU PUT IN A CATHETER". REPORTED TO DAY SHIFT RN DRE THAT MESSAGE WAS LEFT FOR FOLLOW-UP.
[2019-08-04 10:18] LABS: Prostate Specific Antigen 0.839 ng/mL (0.000-4.000)
--- NOTE | 2019-08-04 14:28 | NUR ---
dr left orders that if o2 level was sustained above 90 that the pt could go home, with is, o2 level has stayed above 87 but drifts down when pt is resting/not using is or not breathing deeply, discussed issue and pt was still insistant that he should go home as the dr promised him, confirmed parameters with dr and relayed info, will continue to monitor and treat until pt receives dc orders or pass pt on to next shift, a+o
[2019-08-04] MEDS ORDERED: LEVFLO500 PO (15:46)
[2019-08-04] MEDS ORDERED: TAMS.4ER PO (15:47)
== END 2019-08-04 18:01 | disposition home or self-care (01) | DRG 183 ==
LOC: ER 11:31 → SURS 11:32 → ICUE 08-02 06:46 → PCU 08-02 17:50
PROVIDERS: Emergency Medicine; Internal Medicine Nephrology; ADMIT Surgery
PROC: 5A1D70Z Performance of Urinary Filtration, Intermittent, Less than 6 Hours Per Day (ICD-10-PCS; principal; 2019-08-03)
DX: S22.42XA Multiple fractures of ribs, left side, initial encounter for closed fracture (principal); N18.6 End stage renal disease; I12.0 Hypertensive chronic kidney disease with stage 5 chronic kidney disease or end stage renal disease; N25.81 Secondary hyperparathyroidism of renal origin; Z87.891 Personal history of nicotine dependence; W01.198A Fall on same level from slipping, tripping and stumbling with subsequent striking against other object, initial encounter; Y92.9 Unspecified place or not applicable; Z79.82 Long term (current) use of aspirin; R91.1 Solitary pulmonary nodule; E86.9 Volume depletion, unspecified; I95.9 Hypotension, unspecified; E83.39 Other disorders of phosphorus metabolism; D63.1 Anemia in chronic kidney disease; Z99.2 Dependence on renal dialysis
CPT/HCPCS: 36415; 51701; 71045; 71046; 71260; 74022; 74177; 76770; 80047; 80053; 80069; 83036; 83735; 84484; 85014; 85018; 85025; 93005; 93010; 93308; 93321; 96374-59; 96375; 96376; 97161; 97530; 99285-25; C9113; G0103; G0378; J1956; J2270; J2405; J2550; J3010; J7040; Q9967

== ENCOUNTER 2019-08-23 04:42 | Observation (INO) | payer OTHER, MEDICARE ==
[~2019-08-23] VITALS: Ht 180.3 cm; Wt 63.5 kg
[~2019-08-23 04:42] MED LIST changes: +ATOR10 PO; +Aspir 8181 MG PO; +BIOTIN5 MG PO; +CARVEDILOL12.5 MG PO; +Calcium Acetat667 MG PO; +Cetirizine HCl10 MG PO; +HYDHCL25 PO; +LEVFLO500 PO; +LOSA50 PO; +Oxycodone-Apap1 EAC3 PO; +PANTOPRAZOLE SO40 M2 PO; +RENAL VITAMIN0.8 MG PO; +TAMS.4ER PO; +TEMA15 PO
[2019-08-23 06:52] LABS: BASOPHILS ABSOLUTE AUTO 0.05 K/mm3 (0.00-0.23); BASOPHILS PERCENT AUTO 1 % (0-2); EOSINOPHILS ABSOLUTE AUTO 1.09 K/mm3 (0.00-0.68); EOSINOPHILS PERCENT AUTO 11 % (0-6); Hematocrit 26.7 % (37.0-53.0); Hemoglobin 8.1 g/dL (13.5-17.5); IMMATURE GRAN ABSOLUTE AUTO 0.05 K/mm3 (0.00-0.10); IMMATURE GRAN PERCENT AUTO 1 % (0-1); LYMPHOCYTES ABSOLUTE AUTO 1.34 K/mm3 (0.84-5.20); LYMPHOCYTES PERCENT AUTO 14 % (21-46); MONOCYTES ABSOLUTE AUTO 1.17 K/mm3 (0.16-1.47); MONOCYTES PERCENT AUTO 12 % (4-13); Mean Corpuscular HGB 30.6 pg (26.0-34.0); Mean Corpuscular HGB Conc 30.3 g/dL (31.5-36.5); Mean Corpuscular Volume 101 fL (80-100); Mean Platelet Volume 10.2 fL (9.1-12.4); NEUTROPHILS ABSOLUTE AUTO 6.24 K/mm3 (1.96-9.15); NEUTROPHILS PERCENT AUTO 63 % (41-73); Platelet Count 325 K/mm3 (150-400); RDW Coefficient Variation 14.6 % (11.7-14.2); RDW Standard Deviation 54.2 fL (35.1-46.3); Red Blood Cell Count 2.65 M/mm3 (4.30-5.90); White Blood Cell Count 9.94 K/mm3 (4.00-11.30)
[2019-08-23 07:17] LABS: Troponin I 0.021 ng/mL (0.000-0.040)
[2019-08-23 07:20] LABS: Albumin/Globulin Ratio 0.8 (0.8-1.8); Bilirubin, Total 0.4 mg/dL (0.1-1.0); Bun/Creatinine Ratio 9.3 (12.0-20.0); Creatinine, Blood 8.88 mg/dL (0.60-1.20); Globulin, Blood 3.9 g/dL (2.2-4.0); Potassium, Blood 5.5 mmol/L (3.5-5.5); Total Protein, Blood 6.9 g/dL (6.4-8.2)
[2019-08-23 10:55] LABS: International Normalized Ratio 1.15
[2019-08-23 16:17] LABS: Hematocrit 26.1 % (37.0-53.0); Hemoglobin 8.1 g/dL (13.5-17.5)
[2019-08-23 16:34] LABS: Bun/Creatinine Ratio 8.3 (12.0-20.0); Calcium, Blood 8.6 mg/dL (8.5-10.1)
--- NOTE | 2019-08-23 18:14 | NUR ---
TO [facility] ADMISSION STARTED AT THIS TIME. VSS LOW SAT
--- NOTE | 2019-08-23 18:42 | NUR ---
PATIENT PLACED ON 3L NC O2 AT ADMIT TO [facility] PER KRISTIN YEAGER RN.
--- NOTE | 2019-08-23 18:45 | NUR ---
SHIFT SUMMARY- PT ADMITTED THROUGH THE ED. PT HAD PAIN ON ADMIT RECIEVED A OT DOSE OF IV FENTANYL IN THE ER PER REPORT AND THEN PT WENT TO DIALYSIS. ADMITTED FROM DIALYSIS AT 1315. PT REQUESTED PAIN MEDS AFTER 1400 AND WAS GIVEN TYLENOL. TYLENOL WAS INEFFECTIVE AND SPOKE TO DR PINON TO RECIEVE AN ORDER FOR PO TRAMADOL. CALLED GI CONSULT TO ENSURE IT WAS DONE IN THE ED. DR KELLER IS AWARE OF THE PT. PT WAS TAKEN DOWN FOR UPPER ENDOSCOPY AT AROUND 1800. PAIN SEEMED FAIRLY WELL MANAGED WITH THE TRAMADOL 5/10 WHEN HE LEFT FOR THE PROCEDURE.
[2019-08-23 22:21] LABS: Hemoglobin 7.9 g/dL (13.5-17.5)
[2019-08-24 03:01] LABS: Source, Urine Clean Catch
[2019-08-24 03:04] LABS: Bilirubin, Urine Neg (Neg); Blood, Urine Neg (Neg); Glucose Qualitative, Urine 1+ (Neg); Ketones, Urine Neg (Neg); Leukocyte Esterase, Urine Neg (Neg); Nitrite, Urine Neg (Neg); Protein, Urine 3+ (Neg); Specific Gravity, Urine 1.015 (1.003-1.022); Urobilinogen, Urine NORM (Normal)
[2019-08-24 03:21] LABS: Appearance, Urine Clear (Clear); Color, Urine Pale Yellow (P-Yellow); U Amphetamine Screen Not Detected; U Barbituate Screen Not Detected; U Benzodiazapine Screen Not Detected; U Buprenorphine Screen Not Detected; U Cannabinoids Screen Not Detected; U Cocaine Screen Not Detected; U Methadone Screen Not Detected; U Methamphetamine Screen Not Detected; U Opiates Screen Not Detected; U Oxycodone Screen Not Detected; U Phencyclidine Screen Not Detected; U Propoxyphene Screen Not Detected
[2019-08-24 03:22] LABS: Amorphous Light (0-Heavy); Bacteria Not Seen /hpf; Red Blood Cells, Urine Not Seen /hpf (0-2); Squamous Epithelial Cells Not Seen /hpf (Few); White Blood Cells, Urine Not Seen /hpf (0-5)
--- NOTE | 2019-08-24 04:06 | NUR ---
SHIFT SUMMARY PT HAD AN UPPER ENDOSCOPY AT 1800 ON 08/23/19. HE WAS DX WITH WHITTEN'S ESOPHAGUS AND PT ACKNOWLEDGED HE UNDERSTOOD. HE WAS EXTREMELY TIRED UPON RETURN FROM THE PROCEDURE. HE HAS APPEARED TO BE SLEEPING T/O THE NIGHT. HE HAS BEEN COMPLAINING OF GETTING HIS VS TAKEN HE HAS TO WAKE UP FOR THIS. NO C/O PAIN/DISCOMFORT OR ANY OTHER PROBLEMS NOTED.
[2019-08-24 05:24] LABS: Albumin, Blood 2.9 g/dL (3.4-5.0); Anion Gap 12 mmol/L (6-16); Blood Urea Nitrogen 53 mg/dL (8-24); Bun/Creatinine Ratio 7.6 (12.0-20.0); CO2, Blood 29 mmol/L (21-32); Calcium, Blood 8.9 mg/dL (8.5-10.1); Chloride, Blood 97 mmol/L (98-108); Creatinine, Blood 6.99 mg/dL (0.60-1.20); Glomerular Filtration Rate 8 (60-); Glucose, Blood 63 mg/dL (70-99); Magnesium, Blood 1.9 mg/dL (1.6-2.4); Phosphorus, Blood 4.5 mg/dL (2.5-4.9); Potassium, Blood 4.4 mmol/L (3.5-5.5); Sodium, Blood 138 mmol/L (136-145)
[2019-08-24 05:30] LABS: Hematocrit 29.4 % (37.0-53.0); Hemoglobin 9.2 g/dL (13.5-17.5); Mean Corpuscular HGB 31.5 pg (26.0-34.0); Mean Corpuscular HGB Conc 31.3 g/dL (31.5-36.5); Mean Corpuscular Volume 101 fL (80-100); Mean Platelet Volume 10.6 fL (9.1-12.4); Platelet Count 278 K/mm3 (150-400); RDW Coefficient Variation 14.3 % (11.7-14.2); Red Blood Cell Count 2.92 M/mm3 (4.30-5.90); White Blood Cell Count 7.62 K/mm3 (4.00-11.30)
--- NOTE | 2019-08-24 07:13 | NUR ---
ASSUMED CARE OF PT- BEDSIDE REPORT COMPLETED WITH NIGHT RN PHYLLIS. PT ALERT AND ORIENTED AND APPEARS TO BE IN GOOD SPIRITS. PT IS CONFEDERATED SALISH BUT IF YOU SPEAK UP HE IS MORE ORIENTED THAN HE APPEARS. PT GOT UP AND TOOK A SHOWER LAST NIGHT. PT IN BED CALL LIGHT IN REACH NO S&S OF DISTRESS NOTED AT THIS TIME WILL CTM.
--- NOTE | 2019-08-24 08:17 | NUR ---
SPOKE TO JELLY MAKER DELONDA. PT IV ABX NEED TO BE GIVEN 2 HOURS PRIOR TO DIALYSIS OR AFTER DIALYSIS THE PROCESS WILL FILTER ABX OUT AND THEY WILL NOT BE ABLE TO WORK. PT IV ABX WILL BE GIVEN WHEN HE RETURNS FROM DIALYSIS.
--- NOTE | 2019-08-24 12:00 | NUR ---
SPOKE TO DR PINON- PT HAS DISCHARGE ORDERS IV ABX NOT GIVEN YET D/T DIALYSIS. PER DR BENSON ROCEPHIN AND GIVE IV AZITHROMYACIN.
[2019-08-24] MEDS ORDERED: AZIT250 PO (12:29)
--- NOTE | 2019-08-24 14:43 | NUR ---
PT MEDICATED FOR PAIN WITH TRAMADOL DURING DIALYSIS. PER REPORT FROM HIS SPOUSE THE PT HAS BEEN HAVING EXTREME ITCHING AFTER DIALYSIS. AFTER PT RETURNED FROM DIALYSIS HE RECIEVED IV ABX AND WAS DISCHARGED HOME. ON THE WAY OUT THE PT SPOUSE ASKED WHAT THE PT WAS GIVEN AND STATED "HE ISN'T ITCHING AT ALL!" PT APPEARED TO BE VERY PLEASED NO S&S OF DISTRESS OR ITCHING NOTED. PT INDEPENDENTLY GOT FROM THE WC TO THE CAR, NO FURTHER QUESTIONS AT THE TIME OF DISCHARGE.
--- NOTE | 2019-08-24 14:59 | NUR ---
DISCHARGE SUMMARY SPOKE IN DEPTH WITH THE AND THE PATIENT ABOUT HIS DISCHARGE INSTRUCTIONS, HIS FOLLOW UP APPOINTMENT AND HIS CURRENT MEDICATION REGIMEN. PATIENT HAD NO QUESTIONS AT TIME OF DISCHARGE. HIS IV WAS REMOVED, INTACT, NO BREAK IN THE CATHETER. PATIENT WAS PLEASANT AND WHEELED OUT BY RN.
[2019-09-21] MEDS ORDERED: HYDHCL25 PO (13:02)
[2019-09-21] MEDS ORDERED: LEVFLO500 PO (13:50)
== END 2019-08-24 14:10 | disposition home or self-care (01) ==
LOC: ER 04:42 → MEDS 04:43 → ER 10:31 → MEDS 10:31 → ENPENDDIS 08-24 09:45 → MEDS 08-24 14:10
PROVIDERS: Emergency Medicine; Nurse Practitioner Acute Care; Student in an Organized Health Care Education/Training Program; ADMIT Hospitalist
PROC: 0DB58ZZ Excision of Esophagus, Via Natural or Artificial Opening Endoscopic (ICD-10-PCS; principal; 2019-08-23 17:45)
DX: K22.70 Barrett's esophagus without dysplasia (principal); K44.9 Diaphragmatic hernia without obstruction or gangrene; I13.2 Hypertensive heart and chronic kidney disease with heart failure and with stage 5 chronic kidney disease, or end stage renal disease; N18.6 End stage renal disease; I50.9 Heart failure, unspecified; D63.1 Anemia in chronic kidney disease; N25.81 Secondary hyperparathyroidism of renal origin; J44.9 Chronic obstructive pulmonary disease, unspecified; S22.42XA Multiple fractures of ribs, left side, initial encounter for closed fracture; N40.0 Benign prostatic hyperplasia without lower urinary tract symptoms; E87.70 Fluid overload, unspecified; E87.1 Hypo-osmolality and hyponatremia; E87.6 Hypokalemia; E88.09 Other disorders of plasma-protein metabolism, not elsewhere classified; G47.33 Obstructive sleep apnea (adult) (pediatric); K92.1 Melena; F41.9 Anxiety disorder, unspecified; F32.9 Major depressive disorder, single episode, unspecified; I25.10 Atherosclerotic heart disease of native coronary artery without angina pectoris; Z95.5 Presence of coronary angioplasty implant and graft; Z91.19 Patient's noncompliance with other medical treatment and regimen; Z99.89 Dependence on other enabling machines and devices; Z87.891 Personal history of nicotine dependence; Z99.2 Dependence on renal dialysis; Z79.82 Long term (current) use of aspirin; Z79.899 Other long term (current) drug therapy; X58.XXXA Exposure to other specified factors, initial encounter; Z91.048 Other nonmedicinal substance allergy status
CPT/HCPCS: 36415; 71046; 80048; 80053; 80069; 81001; 82272; 83605; 83735; 83880; 84100; 84145; 84484; 85014; 85018; 85025; 85027; 85610; 86850; 86900; 86901; 87040; 88305; 93005; 93010; 96365; 96366; 96367; 96375; 96376; 99285-25; A9270; C9113; G0257; G0378; J0456; J0696; J0881; J2001; J2250; J2405; J2704; J3010; J7030; J7050

== ENCOUNTER 2019-08-27 10:58 | Emergency (ER) | payer OTHER, MEDICARE ==
[~2019-08-27] VITALS: Ht 180.3 cm; Wt 61.2 kg
[~2019-08-27 10:58] MED LIST changes: +AZIT250 PO
[2019-08-27 12:00] LABS: BASOPHILS ABSOLUTE AUTO 0.07 K/mm3 (0.00-0.23); BASOPHILS PERCENT AUTO 1 % (0-2); EOSINOPHILS ABSOLUTE AUTO 1.03 K/mm3 (0.00-0.68); EOSINOPHILS PERCENT AUTO 13 % (0-6); Hematocrit 28.6 % (37.0-53.0); Hemoglobin 8.8 g/dL (13.5-17.5); IMMATURE GRAN ABSOLUTE AUTO 0.05 K/mm3 (0.00-0.10); IMMATURE GRAN PERCENT AUTO 1 % (0-1); LYMPHOCYTES PERCENT AUTO 17 % (21-46); MONOCYTES ABSOLUTE AUTO 0.82 K/mm3 (0.16-1.47); MONOCYTES PERCENT AUTO 10 % (4-13); Mean Corpuscular HGB Conc 30.8 g/dL (31.5-36.5); Mean Corpuscular Volume 101 fL (80-100); Mean Platelet Volume 10.3 fL (9.1-12.4); NEUTROPHILS ABSOLUTE AUTO 4.61 K/mm3 (1.96-9.15); NEUTROPHILS PERCENT AUTO 59 % (41-73); Platelet Count 315 K/mm3 (150-400); RDW Coefficient Variation 14.5 % (11.7-14.2); RDW Standard Deviation 52.9 fL (35.1-46.3); Red Blood Cell Count 2.84 M/mm3 (4.30-5.90); White Blood Cell Count 7.88 K/mm3 (4.00-11.30)
[2019-08-27 12:21] LABS: Albumin, Blood 3.1 g/dL (3.4-5.0); Albumin/Globulin Ratio 0.7 (0.8-1.8); Bilirubin, Total 0.4 mg/dL (0.1-1.0); Bun/Creatinine Ratio 9.1 (12.0-20.0); Calcium, Blood 9.1 mg/dL (8.5-10.1); Creatinine, Blood 4.71 mg/dL (0.60-1.20); Globulin, Blood 4.4 g/dL (2.2-4.0); Potassium, Blood 3.2 mmol/L (3.5-5.5); Total Protein, Blood 7.5 g/dL (6.4-8.2)
[2019-09-21] MEDS ORDERED: HYDHCL25 PO (13:02)
[2019-09-21] MEDS ORDERED: LEVFLO500 PO (13:50)
== END 2019-08-27 13:57 | disposition home or self-care (01) ==
LOC: ER 10:58
PROVIDERS: Physician Assistant
DX: D64.9 Anemia, unspecified (principal); I12.0 Hypertensive chronic kidney disease with stage 5 chronic kidney disease or end stage renal disease; N18.6 End stage renal disease; I25.10 Atherosclerotic heart disease of native coronary artery without angina pectoris; N40.0 Benign prostatic hyperplasia without lower urinary tract symptoms; F41.9 Anxiety disorder, unspecified; F32.9 Major depressive disorder, single episode, unspecified; G47.30 Sleep apnea, unspecified; Z79.899 Other long term (current) drug therapy; Z79.82 Long term (current) use of aspirin; Z99.2 Dependence on renal dialysis
CPT/HCPCS: 36415; 80053; 85025; 86850; 86900; 86901; 99283

== ENCOUNTER 2019-08-30 12:47 | Observation (INO) | payer OTHER, MEDICARE ==
[~2019-08-30] VITALS: Ht 180.3 cm; Wt 68.2 kg
[2019-08-30 13:40] LABS: BASOPHILS ABSOLUTE AUTO 0.07 K/mm3 (0.00-0.23); BASOPHILS PERCENT AUTO 1 % (0-2); EOSINOPHILS ABSOLUTE AUTO 0.35 K/mm3 (0.00-0.68); EOSINOPHILS PERCENT AUTO 4 % (0-6); Hematocrit 29.8 % (37.0-53.0); Hemoglobin 9.3 g/dL (13.5-17.5); IMMATURE GRAN ABSOLUTE AUTO 0.05 K/mm3 (0.00-0.10); IMMATURE GRAN PERCENT AUTO 1 % (0-1); LYMPHOCYTES PERCENT AUTO 15 % (21-46); MONOCYTES ABSOLUTE AUTO 0.66 K/mm3 (0.16-1.47); MONOCYTES PERCENT AUTO 8 % (4-13); Mean Corpuscular HGB Conc 31.2 g/dL (31.5-36.5); Mean Corpuscular Volume 99 fL (80-100); Mean Platelet Volume 10.8 fL (9.1-12.4); NEUTROPHILS ABSOLUTE AUTO 6.16 K/mm3 (1.96-9.15); NEUTROPHILS PERCENT AUTO 72 % (41-73); NRBC ABSOLUTE 0.05 K/mm3 (0.00-0.02); NRBC Auto 0.6 /100 WBC (0.0-0.2); Platelet Count 354 K/mm3 (150-400); RDW Coefficient Variation 15.6 % (11.7-14.2); RDW Standard Deviation 53.8 fL (35.1-46.3); White Blood Cell Count 8.59 K/mm3 (4.00-11.30)
[2019-08-30 14:08] LABS: Magnesium, Blood 2.1 mg/dL (1.6-2.4)
[2019-08-30 14:14] LABS: Albumin, Blood 3.3 g/dL (3.4-5.0); Albumin/Globulin Ratio 0.8 (0.8-1.8); Bilirubin, Total 0.5 mg/dL (0.1-1.0); Bun/Creatinine Ratio 12.1 (12.0-20.0); Calcium, Blood 9.7 mg/dL (8.5-10.1); Creatinine, Blood 9.23 mg/dL (0.60-1.20); Potassium, Blood 4.5 mmol/L (3.5-5.5); Total Protein, Blood 7.3 g/dL (6.4-8.2)
[2019-08-30] MEDS ORDERED: SERT100 PO (17:28)
[2019-08-30] MEDS ORDERED: Seroquel Xr50 MG PO (17:28)
[2019-08-30] MEDS ORDERED: LORA.5 PO (17:29)
[2019-08-30] MEDS ORDERED: FERRIC CITRATE210 MG PO ×2 (17:30→17:31)
--- NOTE | 2019-08-30 17:38 | NUR ---
WE SPOKE TO , RADIOLOGY AND THE DIALYSIS NURSE. THE RADIOLOGIST WANTS ORAL PREP AND IV CONTRAST, NOT JUST THE IV CONTRAST. THAT WOULD PUT HIS CT SCAN TO 2130 TONIGHT AND DIALYSIS VERY LATE. , UNDERSTANDING THE SITUATION AGREES TO AN EARLY AM CT SCAN INSTEAD. THE PATIENT WILL HAVE A SHORT DIALYSIS TONIGHT TO REMOVE SOME WATER. HE WILL DRINK THE ORAL PREP EARLY IN THE MORNING FOR A 6 AM SCAN. THEN THE DIALYSIS NURSE WILL DIALIZE HIM AGAIN IN THE MORNING AFTER THE SCAN. ANSWERED THE GI CONSULT AND SAYS HE WILL SEE THE PATIENT THIS EVENING. HE SAYS HE SCOPED KJ RECENTLY AND DOES NOT PLAN TO SCOPE HIM AGAIN. HE SAYS KJ CAN EAT IF HE WANTS TO. HE WILL BE NPO TONIGHT THOUGH WHEN HE STARTS THE ORAL PREP.
--- NOTE | 2019-08-30 19:18 | NUR ---
PT ARRIVED TO UNIT AT 1630 VIA BED. PT PIVOT TRANSFERED TO BED. GI CONUSULT, STAT CT WITH CONTRAST, FOLLOWED BY DYALISIS. PT TRANSFERING TO PCU AFTER CT SCAN. REPORT CALLED TO ANKITA NICHOLS.
[2019-08-30 19:51] LABS: Adenovirus Not Detected (NOT DETECT); Bordetella pertussis Not Detected (NOT DETECT); Chlamydophila pneumoniae Not Detected (NOT DETECT); Coronavirus 229E Not Detected (NOT DETECT); Coronavirus HKU1 Not Detected (NOT DETECT); Coronavirus NL63 Not Detected (NOT DETECT); Coronavirus OC43 Not Detected (NOT DETECT); Human Metapneumovirus Not Detected (NOT DETECT); Human Rhinovirus/Enterovirus Not Detected (NOT DETECT); Influenza A Not Detected (NOT DETECT); Influenza A/2009-H1 Not Detected (NOT DETECT); Influenza A/H1 Not Detected (NOT DETECT); Influenza A/H3 Not Detected (NOT DETECT); Influenza B Not Detected (NOT DETECT); Mycoplasma pneumoniae Not Detected (NOT DETECT); Parainfluenza Virus 1 Not Detected (NOT DETECT); Parainfluenza Virus 2 Not Detected (NOT DETECT); Parainfluenza Virus 3 Not Detected (NOT DETECT); Parainfluenza Virus 4 Not Detected (NOT DETECT); Respiratory Syncytial Virus Not Detected (NOT DETECT)
--- NOTE | 2019-08-30 23:34 | NUR ---
1920 PT TO PCU-[address] SCAN, DIALYSIS NURSE AT SIDE FOR DIALYSIS PROCEDURE. PT VOICED HE IS UNSURE OF ANY HIS HOME MEDICATIONS HIS MANAGES ALL OF THEM; PT ALERT AND ORIENTED X 2; ABLE TO FOLLOW SIMPLE VERBAL COMMANDS.
[2019-08-31 04:26] LABS: Hematocrit 31.5 % (37.0-53.0); Hemoglobin 9.7 g/dL (13.5-17.5)
--- NOTE | 2019-08-31 04:45 | NUR ---
SHIFT SUMMARY: 69 Y/O MALE RESTED COMFORTABLY ALL SHIFT AFTER HAVING EARLY EVENING CT SCAN PERFORMED (COLITIS) AND BEDSIDE DIALYSIS VIA FISTULA IN LEFT FOREARM; PT POOR HISTORIAN AND UNSURE WHAT MEDS HE CURRENTLY TAKES HIS MANAGES ALL DAILY ROUTINE; PT ALERT AND ORIENTED X 2 AND ABLE TO FOLOW SIMPLE VERBAL COMMANDS; VOIDED 200ML CLEAR YELLOW FLUID; BED LOW POSITION WITH CALL LIGHT AT SIDE.
[2019-08-31 04:49] LABS: Albumin, Blood 3.3 g/dL (3.4-5.0); Anion Gap 12 mmol/L (6-16); Blood Urea Nitrogen 71 mg/dL (8-24); Bun/Creatinine Ratio 10.1 (12.0-20.0); CO2, Blood 30 mmol/L (21-32); Calcium, Blood 9.6 mg/dL (8.5-10.1); Chloride, Blood 96 mmol/L (98-108); Creatinine, Blood 7.02 mg/dL (0.60-1.20); Glomerular Filtration Rate 8 (60-); Glucose, Blood 84 mg/dL (70-99); Magnesium, Blood 2.1 mg/dL (1.6-2.4); Phosphorus, Blood 4.3 mg/dL (2.5-4.9); Potassium, Blood 3.9 mmol/L (3.5-5.5); Sodium, Blood 138 mmol/L (136-145)
--- NOTE | 2019-08-31 06:23 | NUR ---
PT ADMITTED TO PCU-13 PER CART FROM ER; TELEMETRY REFLECTS A/FIB WITH HEART RATE 100; ALERT AND ORIENTED X 4; COOPERATIVE AND HAPPY.
--- NOTE | 2019-08-31 07:33 | NUR ---
ASSUMED CARE: PT RESTING QUIETLY AT THIS TIME. ORIENTEE INTRODUCED SELF UPON REPORT. NO NEEDS OR CONCERNS NOTED.
--- NOTE | 2019-08-31 07:45 | NUR ---
ASSUMED CARE OF PT. IN NO ACUTE DISTRESS AT THIS TIME. WILL CONTINUE TO MONITOR.
--- NOTE | 2019-08-31 08:30 | NUR ---
DR. RICHEY IN TO SEE PT. PLAN IS TO DISCHARGE PT HOME.
[2019-08-31] MEDS ORDERED: NEPHRO-VITE RX1 EACH PO (11:04)
[2019-08-31] MEDS ORDERED: LEVFLO500 PO (11:08)
[2019-08-31] MEDS ORDERED: METR500 PO (11:08)
--- NOTE | 2019-08-31 12:10 | NUR ---
PT DISCHARGED HOME. INSTRUCTED TO FOLLOW UP WITH DR GRANADOS, [facility] DOC AND DR WOOD. INSTRUCTED ON ANTIBIOTICS DOSING AND USE. IV DC'D WNL. DENIED FURTHER QUESTIONS OR CONCERNS. ESCORTED OUT VIA WHEEL CHAIR BY HOSPITAL STAFF.
[2019-09-21] MEDS ORDERED: HYDHCL25 PO (13:02)
[2019-09-21] MEDS ORDERED: LEVFLO500 PO (13:50)
== END 2019-08-31 12:01 | disposition home or self-care (01) ==
LOC: ER 12:47 → MEDS 12:48 → PCU 16:20 → MEDS 16:24 → PCU 19:09
PROVIDERS: Physician Assistant; ADMIT Internal Medicine
DX: R19.7 Diarrhea, unspecified (principal); K92.1 Melena; I13.2 Hypertensive heart and chronic kidney disease with heart failure and with stage 5 chronic kidney disease, or end stage renal disease; I50.23 Acute on chronic systolic (congestive) heart failure; N18.6 End stage renal disease; I25.10 Atherosclerotic heart disease of native coronary artery without angina pectoris; J96.01 Acute respiratory failure with hypoxia; D63.1 Anemia in chronic kidney disease; J44.9 Chronic obstructive pulmonary disease, unspecified; G47.33 Obstructive sleep apnea (adult) (pediatric); Z79.82 Long term (current) use of aspirin; Z79.899 Other long term (current) drug therapy; Z99.2 Dependence on renal dialysis; Z87.891 Personal history of nicotine dependence
CPT/HCPCS: 0099U; 36415; 74176; 74177; 80053; 80069; 82272; 83605; 83735; 84484; 85014; 85018; 85025; 86850; 86900; 86901; 93005; 93010; 96365; 96366; 96367; 96372; 96374; 96375; 96376; 99285-25; G0257; G0378; J0696; J0881; J2405; J3010; J7050; Q9967

== ENCOUNTER 2019-09-06 00:20 | Day surgery (SDC) | payer MEDICARE, OTHER ==
[~2019-09-06 00:20] MED LIST changes: +FERRIC CITRATE210 MG PO; +METR500 PO; +NEPHRO-VITE RX1 EACH PO; +SERT100 PO; +Seroquel Xr50 MG PO
[2019-09-21] MEDS ORDERED: HYDHCL25 PO (13:02)
[2019-09-21] MEDS ORDERED: LEVFLO500 PO (13:50)
== END 2019-09-06 16:25 | disposition home or self-care (01) ==
LOC: ATC 00:20
PROC: 30243N1 Transfusion of Nonautologous Red Blood Cells into Central Vein, Percutaneous Approach (ICD-10-PCS; principal; 2019-09-06)
DX: I13.2 Hypertensive heart and chronic kidney disease with heart failure and with stage 5 chronic kidney disease, or end stage renal disease (principal); N18.6 End stage renal disease; I50.20 Unspecified systolic (congestive) heart failure; D63.1 Anemia in chronic kidney disease; I25.10 Atherosclerotic heart disease of native coronary artery without angina pectoris; K22.70 Barrett's esophagus without dysplasia; F32.9 Major depressive disorder, single episode, unspecified; F41.9 Anxiety disorder, unspecified; Z99.2 Dependence on renal dialysis; Z91.048 Other nonmedicinal substance allergy status; Z79.82 Long term (current) use of aspirin; Z79.899 Other long term (current) drug therapy
CPT/HCPCS: 36415; 36430; 86850; 86900; 86901; 86923; J7050; P9016

== ENCOUNTER 2019-11-30 11:04 | Observation (INO) | payer MEDICARE, OTHER ==
[~2019-11-30] VITALS: Ht 180.3 cm; Wt 67.5 kg
[2019-11-30 11:38] LABS: BASOPHILS ABSOLUTE AUTO 0.05 K/mm3 (0.00-0.23); BASOPHILS PERCENT AUTO 1 % (0-2); EOSINOPHILS ABSOLUTE AUTO 0.71 K/mm3 (0.00-0.68); EOSINOPHILS PERCENT AUTO 9 % (0-6); Hematocrit 24.7 % (37.0-53.0); Hemoglobin 7.7 g/dL (13.5-17.5); IMMATURE GRAN ABSOLUTE AUTO 0.02 K/mm3 (0.00-0.10); IMMATURE GRAN PERCENT AUTO 0 % (0-1); LYMPHOCYTES ABSOLUTE AUTO 1.11 K/mm3 (0.84-5.20); LYMPHOCYTES PERCENT AUTO 14 % (21-46); MONOCYTES ABSOLUTE AUTO 0.89 K/mm3 (0.16-1.47); MONOCYTES PERCENT AUTO 11 % (4-13); Mean Corpuscular HGB 32.5 pg (26.0-34.0); Mean Corpuscular HGB Conc 31.2 g/dL (31.5-36.5); Mean Corpuscular Volume 104 fL (80-100); Mean Platelet Volume 11.4 fL (9.1-12.4); NEUTROPHILS ABSOLUTE AUTO 5.26 K/mm3 (1.96-9.15); NEUTROPHILS PERCENT AUTO 66 % (41-73); NRBC ABSOLUTE 0.02 K/mm3 (0.00-0.02); NRBC Auto 0.2 /100 WBC (0.0-0.2); Platelet Count 201 K/mm3 (150-400); RDW Standard Deviation 65.2 fL (35.1-46.3); Red Blood Cell Count 2.37 M/mm3 (4.30-5.90); White Blood Cell Count 8.04 K/mm3 (4.00-11.30)
[2019-11-30 12:00] LABS: Troponin I 0.057 ng/mL (0.000-0.040)
[2019-11-30 12:06] LABS: Albumin, Blood 3.5 g/dL (3.4-5.0); Albumin/Globulin Ratio 0.9 (0.8-1.8); Bilirubin, Total 0.5 mg/dL (0.1-1.0); Bun/Creatinine Ratio 16.1 (12.0-20.0); Calcium, Blood 10.3 mg/dL (8.5-10.1); Creatinine, Blood 10.9 mg/dL (0.60-1.20); Globulin, Blood 3.8 g/dL (2.2-4.0); Potassium, Blood 5.7 mmol/L (3.5-5.5); Total Protein, Blood 7.3 g/dL (6.4-8.2)
[2019-11-30] MEDS ORDERED: TEMA30 PO (12:32)
[2019-11-30] MEDS ORDERED: CALCIUM ACETAT667 M2 PO (12:32)
[2019-11-30] MEDS ORDERED: LORA.5 PO (17:42)
[2019-11-30] MEDS ORDERED: SERT100 PO (17:43)
[2019-11-30 17:59] LABS: Hematocrit 25.8 % (37.0-53.0); Hemoglobin 8.1 g/dL (13.5-17.5)
[2019-11-30 18:19] LABS: Adenovirus Not Detected (NOT DETECT); Bordetella pertussis Not Detected (NOT DETECT); Chlamydophila pneumoniae Not Detected (NOT DETECT); Coronavirus 229E Not Detected (NOT DETECT); Coronavirus HKU1 Not Detected (NOT DETECT); Coronavirus NL63 Not Detected (NOT DETECT); Coronavirus OC43 Not Detected (NOT DETECT); Human Metapneumovirus Not Detected (NOT DETECT); Human Rhinovirus/Enterovirus Not Detected (NOT DETECT); Influenza A/2009-H1 Not Detected (NOT DETECT); Influenza A/H1 Not Detected (NOT DETECT); Influenza A/H3 Not Detected (NOT DETECT); Influenza B Not Detected (NOT DETECT); Mycoplasma pneumoniae Not Detected (NOT DETECT); Parainfluenza Virus 1 Not Detected (NOT DETECT); Parainfluenza Virus 2 Not Detected (NOT DETECT); Parainfluenza Virus 3 Not Detected (NOT DETECT); Parainfluenza Virus 4 Not Detected (NOT DETECT); Respiratory Syncytial Virus Not Detected (NOT DETECT)
--- NOTE | 2019-11-30 18:40 | NUR ---
SHIFT SUMMARY PT ARRIVED TO PCU VIA STRETCHER AROUND 1523. PT AWAKE & ALERT, VSS. PT C/O FEELING WEAK, TIRED, NAUSEOUS, & REPORTS HEADACHE & SHARP LLQ ABDOMINAL PAIN; PT WAS MEDICATED FOR PAIN & NAUSEA PER EMAR. PT VERY IRRITABLE & UNINTERESTED IN PROVIDING INFO OR RECEIVING EDUCATION. ADMISSION INFORMATION & MED REC OBTAINED FROM PT'S CHART & PT'S VIA TELEPHONE. COARSE LUNG SOUNDS NOTED THROUGHOUT ALL LUNG MARROQUIN, PT W/ MOIST COUGH. OUTER DIAMETER GRINDER AT BEDSIDE SETTING UP FOR PT TO RECEIVE DIALYSIS; PT TO RECEIVE 2 UNITS PRBCS FOR HGB 7.7. PT CURRENTLY RESTING IN BED, GENERALLY FEELS UNWELL, STILL W/ NAUSEA; EMESIS BAG AT BEDSIDE. WILL CONTINUE TO MONITOR UNTIL END OF SHIFT.
[2019-11-30 23:34] LABS: Hematocrit 30.1 % (37.0-53.0); Hemoglobin 9.8 g/dL (13.5-17.5)
[2019-12-01 03:45] LABS: BASOPHILS ABSOLUTE AUTO 0.04 K/mm3 (0.00-0.23); BASOPHILS PERCENT AUTO 1 % (0-2); EOSINOPHILS ABSOLUTE AUTO 0.56 K/mm3 (0.00-0.68); EOSINOPHILS PERCENT AUTO 9 % (0-6); Hematocrit 29.4 % (37.0-53.0); Hemoglobin 9.4 g/dL (13.5-17.5); IMMATURE GRAN ABSOLUTE AUTO 0.03 K/mm3 (0.00-0.10); IMMATURE GRAN PERCENT AUTO 1 % (0-1); LYMPHOCYTES ABSOLUTE AUTO 0.86 K/mm3 (0.84-5.20); LYMPHOCYTES PERCENT AUTO 14 % (21-46); MONOCYTES PERCENT AUTO 10 % (4-13); Mean Corpuscular HGB 31.6 pg (26.0-34.0); Mean Platelet Volume 10.4 fL (9.1-12.4); NEUTROPHILS PERCENT AUTO 66 % (41-73); NRBC ABSOLUTE 0.03 K/mm3 (0.00-0.02); NRBC Auto 0.5 /100 WBC (0.0-0.2); Platelet Count 168 K/mm3 (150-400); RDW Standard Deviation 63.4 fL (35.1-46.3); Red Blood Cell Count 2.97 M/mm3 (4.30-5.90); White Blood Cell Count 6.09 K/mm3 (4.00-11.30)
[2019-12-01 03:53] LABS: Mean Corpuscular Volume 99 fL (80-100)
[2019-12-01 04:08] LABS: Magnesium, Blood 2.5 mg/dL (1.6-2.4)
[2019-12-01 04:10] LABS: Albumin, Blood 3.3 g/dL (3.4-5.0); Anion Gap 12 mmol/L (6-16); Blood Urea Nitrogen 115 mg/dL (8-24); Bun/Creatinine Ratio 14.4 (12.0-20.0); CO2, Blood 31 mmol/L (21-32); Calcium, Blood 9.6 mg/dL (8.5-10.1); Chloride, Blood 94 mmol/L (98-108); Creatinine, Blood 7.99 mg/dL (0.60-1.20); Glomerular Filtration Rate 7 (60-); Glucose, Blood 80 mg/dL (70-99); Phosphorus, Blood 2.7 mg/dL (2.5-4.9); Sodium, Blood 137 mmol/L (136-145)
--- NOTE | 2019-12-01 06:39 | NUR ---
SHIFT SUMMARY. PATIENT HAD DIALYSIS FOR THE FIRST 3+ HOURS OF THE SHIFT. TRANSFUSED 2 UNITS WITH DIALYSIS. PATIENT DID ASK IF HE COULD GO HOME AFTER HIS TREATMENT WAS DONE. i TOLD HIM THAT IT WAS POSSIBLE IF THAT IS WHAT HE WISHED, IF HE HAD A RIDE TO GET HOME. HE THEN DECIDED TO STAY FOR THE NIGHT. HE HAS SLEP OFF AND ON, HE LIKES TO SIT AT THE EDGE OF THE BED AND DANGLE HIS FEET. HE HAS VERY DRY ITCHY SKIN AND i WAS ABLE TO LOTION ALL OF HIS EXTREMETIES AND HIS BACK AND NECK TWICE OVER. hE DOES HAVE MANY SLIGHTLY BLEEDING WOUNDS ALL OVER HIS BODY. SEVERAL ARE BLEEDING ENOUGH FOR A BANDAID. REPORT TO DAY SHIFT. NO ACUTE CHANGES.
--- NOTE | 2019-12-01 17:31 | NUR ---
SHIFT SUMMARY NO ACUTE CHANGES THROUGHOUT SHIFT. VSS. PT REMAINED AWAKE & ALERT, COOPERATIVE W/ CARE; MUCH LESS IRITATED TODAY. DENIED ANY C/O CHEST PAIN/PRESSURE OR SOB. PT WAS MEDICATED FOR NAUSEA X1 PER EMAR; NO OTHER REPORTS OF NAUSEA SINCE THEN. DR. GRANADOS & DR. BELL WERE IN TO SEE PT TODAY; PLAN TO KEEP PT OVERNIGHT & HAVE HIM DIALYZED TOMORROW; DEPENDING ON HOW HE FEELS, HE MAY BE A POSSIBLE DISCHARGE. PT CURRENTLY RESTING IN BED IN NO DISTRESS. WILL CONTINUE TO MONITOR UNTIL END OF SHIFT.
[2019-12-02 04:00] LABS: Base Excess Venous 9.5 mmol/L; PCO2 Venous 45.4 mmHg (38-42); PO2 Venous 47.2 mmHg (38-42); pH Blood Venous 7.47 (7.34-7.37)
[2019-12-02 04:31] LABS: BASOPHILS ABSOLUTE AUTO 0.05 K/mm3 (0.00-0.23); BASOPHILS PERCENT AUTO 1 % (0-2); EOSINOPHILS ABSOLUTE AUTO 0.76 K/mm3 (0.00-0.68); EOSINOPHILS PERCENT AUTO 11 % (0-6); Hemoglobin 9.9 g/dL (13.5-17.5); IMMATURE GRAN ABSOLUTE AUTO 0.02 K/mm3 (0.00-0.10); IMMATURE GRAN PERCENT AUTO 0 % (0-1); LYMPHOCYTES ABSOLUTE AUTO 1.19 K/mm3 (0.84-5.20); LYMPHOCYTES PERCENT AUTO 17 % (21-46); MONOCYTES ABSOLUTE AUTO 0.95 K/mm3 (0.16-1.47); MONOCYTES PERCENT AUTO 14 % (4-13); Mean Corpuscular HGB 31.9 pg (26.0-34.0); Mean Corpuscular HGB Conc 31.9 g/dL (31.5-36.5); Mean Corpuscular Volume 100 fL (80-100); Mean Platelet Volume 10.7 fL (9.1-12.4); NEUTROPHILS ABSOLUTE AUTO 3.88 K/mm3 (1.96-9.15); NEUTROPHILS PERCENT AUTO 57 % (41-73); NRBC ABSOLUTE 0.02 K/mm3 (0.00-0.02); NRBC Auto 0.3 /100 WBC (0.0-0.2); Platelet Count 173 K/mm3 (150-400); RDW Coefficient Variation 18.9 % (11.7-14.2); RDW Standard Deviation 64.7 fL (35.1-46.3); White Blood Cell Count 6.85 K/mm3 (4.00-11.30)
[2019-12-02 04:57] LABS: Magnesium, Blood 2.8 mg/dL (1.6-2.4)
[2019-12-02 04:59] LABS: Albumin, Blood 3.2 g/dL (3.4-5.0); Anion Gap 13 mmol/L (6-16); Blood Urea Nitrogen 128 mg/dL (8-24); Bun/Creatinine Ratio 13.4 (12.0-20.0); CO2, Blood 30 mmol/L (21-32); Calcium, Blood 9.6 mg/dL (8.5-10.1); Chloride, Blood 94 mmol/L (98-108); Creatinine, Blood 9.52 mg/dL (0.60-1.20); Glomerular Filtration Rate 6 (60-); Glucose, Blood 85 mg/dL (70-99); Potassium, Blood 4.8 mmol/L (3.5-5.5); Sodium, Blood 137 mmol/L (136-145)
--- NOTE | 2019-12-02 06:08 | NUR ---
PATIENT HAD A BED BATH AT THE BEGINNING OF THE SHIFT, AND WAS GIVEN A BACK MASSAGE AND LOTION TO ALL EXTREMETIES, BACK AND NECK. sOME TIME IN THE MIDDLE OF THE SHIFT, PT PULLED OUT HIS IV. DR YAÑEZ CALLED TO CHANGED IV PROTONIX TO PO. AND TO LEAVE IV OUT FOR NOW, SINCE PT REFUSED TO HAVE IT REPLACED. LAB CALLED THIS AM WITHA CRITICAL CREATININE, THIS ELEVATION IS EXPECTED, DR NOT NOTIFIED, PATIENT WILL HAV DYALYSIS TODAY. NO OTHER ACUTE CHANGES.
[2019-12-02 07:07] LABS: HBSAG SCREEN Negative (Negative); HEP A AB, IGM Negative (Negative); HEP B CORE AB, IGM Negative (Negative); HEP C VIRUS AB <0.1 (0.0-0.9)
[2019-12-02] MEDS ORDERED: HYDPAM25 PO (14:21)
--- NOTE | 2019-12-02 14:48 | NUR ---
DISCHARGE SUMMARY NO ACUTE CHANGES THROUGHOUT SHIFT. VSS. PT DENIED ANY C/O CHEST PAIN/PRESSURE OR SOB. RECEIVED HEMODIALYSIS TREATMENT TODAY IN ROOM; TOLERATED WELL. AFTER DIALYSIS PT TOOK OFF TELE & REQUESTING TO GO HOME. PT STATES, "THE DOCTOR SAID I CAN GO HOME AFTER DIALYSIS TODAY." CALL PLACED OUT TO DR. GRANADOS AT 1240 & ASKED ABOUT CLEARANCE FOR DISCHARGE, PT IS FEELING BETTER & WOULD LIKE TO GO HOME. STATED PT IS CLEARED FOR DISCHARGE FROM HIS STANDPOINT; STATES PT MUST FOLLOW UP W/ HIS OUTPATIENT DIALYSIS SCHEDULE. SPOKE W/ DR. HERNANDEZ VIA TELEPHONE & DISCUSSED CLEARANCE FROM DR. GRANDAOS. DISCHARGE EDUCATION WAS COMPLETED W/ PT. DISCUSSED MED REC & FOLLOW UP INSTRUCTIONS W/ [facility]//OUTPATIENT DIALYSIS. PT VERBALIZED UNDERSTANDING & STATED HE WOULD FOLLOW UP INSTRUCTED & TAKE MEDS PRESCRIBED. ONE NEW PRN MEDICATION ADDED TO HOME MED LIST, PRESCRIPTION WAS FAXED TO [facility] IN [place], PT TO [employer] TOMORROW. PT DISCHARGED HOME. TRANSPORTED OFF UNIT VIA WHEELCHAIR IN STABLE CONDITION. ALL PAPERWORK & BELONGINGS SENT W/ PT & LIVESTOCK YARD ATTENDANT. PT PICKED UP AT ER ENTRANCE BY .
== END 2019-12-02 14:48 | disposition home or self-care (01) ==
LOC: ER 11:04 → PCU 11:05
PROVIDERS: Emergency Medicine; Internal Medicine; Internal Medicine Nephrology; Nurse Practitioner Acute Care; ADMIT Internal Medicine
DX: E87.79 Other fluid overload (principal); E87.5 Hyperkalemia; I13.2 Hypertensive heart and chronic kidney disease with heart failure and with stage 5 chronic kidney disease, or end stage renal disease; I50.23 Acute on chronic systolic (congestive) heart failure; N18.6 End stage renal disease; I25.10 Atherosclerotic heart disease of native coronary artery without angina pectoris; E87.1 Hypo-osmolality and hyponatremia; E83.52 Hypercalcemia; N40.0 Benign prostatic hyperplasia without lower urinary tract symptoms; G47.33 Obstructive sleep apnea (adult) (pediatric); R79.89 Other specified abnormal findings of blood chemistry; N25.81 Secondary hyperparathyroidism of renal origin; D63.1 Anemia in chronic kidney disease; L29.9 Pruritus, unspecified; F41.9 Anxiety disorder, unspecified; F32.9 Major depressive disorder, single episode, unspecified; R94.5 Abnormal results of liver function studies; R10.9 Unspecified abdominal pain; Z66 Do not resuscitate; Z79.82 Long term (current) use of aspirin; Z79.899 Other long term (current) drug therapy; Z87.891 Personal history of nicotine dependence; Z99.2 Dependence on renal dialysis
CPT/HCPCS: 0099U; 36415; 36430; 71045; 71046; 74176; 80053; 80069; 80074; 82272; 82803; 83735; 83880; 84145; 84484; 85014; 85018; 85025; 86317; 86850; 86900; 86901; 86923; 93005; 93010; 96372; 96374; 96375; 96376; 99285-25; A9270; A9270-GY; C9113; G0257; G0378; J0881; J2405; P9016

== ENCOUNTER 2020-09-24 20:58 | Emergency (ER) | payer OTHER, MEDICARE ==
[~2020-09-24] VITALS: Ht 180.3 cm; Wt 65.8 kg
[~2020-09-24 20:58] MED LIST changes: +CALCIUM ACETAT667 M2 PO; +HYDPAM25 PO; +TEMA30 PO
[2020-09-24] MEDS ORDERED: TEMAZEPAM PO (21:18)
[2020-09-24 21:42] LABS: BASOPHILS ABSOLUTE AUTO 0.01 K/mm3 (0.00-0.23); BASOPHILS PERCENT AUTO 0 % (0-2); EOSINOPHILS ABSOLUTE AUTO 0.02 K/mm3 (0.00-0.68); EOSINOPHILS PERCENT AUTO 0 % (0-6); Hematocrit 41.1 % (37.0-53.0); Hemoglobin 13.2 g/dL (13.5-17.5); IMMATURE GRAN ABSOLUTE AUTO 0.02 K/mm3 (0.00-0.10); IMMATURE GRAN PERCENT AUTO 0 % (0-1); LYMPHOCYTES ABSOLUTE AUTO 0.52 K/mm3 (0.84-5.20); LYMPHOCYTES PERCENT AUTO 9 % (21-46); MONOCYTES ABSOLUTE AUTO 0.84 K/mm3 (0.16-1.47); MONOCYTES PERCENT AUTO 15 % (4-13); Mean Corpuscular HGB 31.2 pg (26.0-34.0); Mean Corpuscular HGB Conc 32.1 g/dL (31.5-36.5); Mean Corpuscular Volume 97 fL (80-100); Mean Platelet Volume 11.1 fL (9.1-12.4); NEUTROPHILS ABSOLUTE AUTO 4.33 K/mm3 (1.96-9.15); NEUTROPHILS PERCENT AUTO 76 % (41-73); Platelet Count 226 K/mm3 (150-400); RDW Coefficient Variation 17.8 % (11.7-14.2); RDW Standard Deviation 62.7 fL (35.1-46.3); Red Blood Cell Count 4.23 M/mm3 (4.30-5.90); White Blood Cell Count 5.74 K/mm3 (4.00-11.30)
[2020-09-24 22:01] LABS: Albumin/Globulin Ratio 0.9 (0.8-1.8); Bilirubin, Total 0.5 mg/dL (0.1-1.0); Bun/Creatinine Ratio 10.9 (12.0-20.0); Calcium, Blood 10.3 mg/dL (8.5-10.1); Creatinine, Blood 5.97 mg/dL (0.60-1.20); Globulin, Blood 4.3 g/dL (2.2-4.0); Potassium, Blood 3.8 mmol/L (3.5-5.5); Total Protein, Blood 8.3 g/dL (6.4-8.2); Troponin I 0.074 ng/mL (0.000-0.040)
[2020-09-24] MEDS ORDERED: MIRALAX17 GM PO (22:57)
[2020-09-24] MEDS ORDERED: DOCU100 PO (22:57)
[2020-09-24] MEDS ORDERED: PROC5 PO (22:57)
== END 2020-09-24 23:02 | disposition home or self-care (01) ==
LOC: ER 20:58
PROVIDERS: Physician Assistant
DX: K59.00 Constipation, unspecified (principal); J44.9 Chronic obstructive pulmonary disease, unspecified; I12.0 Hypertensive chronic kidney disease with stage 5 chronic kidney disease or end stage renal disease; N18.6 End stage renal disease; Z95.5 Presence of coronary angioplasty implant and graft; Z79.82 Long term (current) use of aspirin; Z79.899 Other long term (current) drug therapy; Z87.891 Personal history of nicotine dependence
CPT/HCPCS: 36415; 74022; 80053; 84484; 85025; 93005; 93010; 96361; 96374; 99284-25; J0780; J7030

== ENCOUNTER 2020-12-14 11:43 | Emergency (ER) | payer OTHER, MEDICARE ==
[~2020-12-14] VITALS: Ht 175.3 cm; Wt 70.3 kg
[~2020-12-14 11:43] MED LIST changes: +DOCU100 PO; +MIRALAX17 GM PO; +PROC5 PO; +TEMAZEPAM PO
== END 2020-12-14 12:30 | disposition home or self-care (01) ==
LOC: ER 11:43
DX: I82.811 Embolism and thrombosis of superficial veins of right lower extremity (principal); Z79.82 Long term (current) use of aspirin; Z79.899 Other long term (current) drug therapy
CPT/HCPCS: 99283

== ENCOUNTER 2021-06-13 18:20 | Emergency (ER) | payer MEDICARE, OTHER ==
[~2021-06-13] VITALS: Ht 180.3 cm; Wt 65.8 kg
[2021-06-13 19:14] LABS: BASOPHILS ABSOLUTE AUTO 0.03 K/mm3 (0.00-0.23); BASOPHILS PERCENT AUTO 1 % (0-2); EOSINOPHILS ABSOLUTE AUTO 0.24 K/mm3 (0.00-0.68); EOSINOPHILS PERCENT AUTO 5 % (0-6); Hematocrit 26.4 % (37.0-53.0); Hemoglobin 8.3 g/dL (13.5-17.5); IMMATURE GRAN ABSOLUTE AUTO 0.01 K/mm3 (0.00-0.10); IMMATURE GRAN PERCENT AUTO 0 % (0-1); LYMPHOCYTES ABSOLUTE AUTO 0.75 K/mm3 (0.84-5.20); LYMPHOCYTES PERCENT AUTO 16 % (21-46); MONOCYTES ABSOLUTE AUTO 0.65 K/mm3 (0.16-1.47); MONOCYTES PERCENT AUTO 14 % (4-13); Mean Corpuscular HGB 30.3 pg (26.0-34.0); Mean Corpuscular HGB Conc 31.4 g/dL (31.5-36.5); Mean Corpuscular Volume 96 fL (80-100); Mean Platelet Volume 10.8 fL (9.1-12.4); NEUTROPHILS ABSOLUTE AUTO 2.96 K/mm3 (1.96-9.15); NEUTROPHILS PERCENT AUTO 64 % (41-73); Platelet Count 175 K/mm3 (150-400); RDW Coefficient Variation 18.8 % (11.7-14.2); RDW Standard Deviation 65.1 fL (35.1-46.3); Red Blood Cell Count 2.74 M/mm3 (4.30-5.90); White Blood Cell Count 4.64 K/mm3 (4.00-11.30)
[2021-06-13 19:34] LABS: Albumin, Blood 3.7 g/dL (3.4-5.0); Albumin/Globulin Ratio 0.9 (0.8-1.8); Bilirubin, Total 0.6 mg/dL (0.1-1.0); Bun/Creatinine Ratio 11.3 (12.0-20.0); Calcium, Blood 10.4 mg/dL (8.5-10.1); Creatinine, Blood 7.16 mg/dL (0.60-1.20); Globulin, Blood 3.9 g/dL (2.2-4.0); Potassium, Blood 4.2 mmol/L (3.5-5.5); Total Protein, Blood 7.6 g/dL (6.4-8.2); Troponin I 0.062 ng/mL (0.000-0.040)
[2021-06-13 21:02] LABS: PCO2 Arterial 42 mmHg (35-45); PO2 Arterial 82.9 mmHg (80-100); pH Blood Arterial 7.51 (7.35-7.45)
[2021-06-13] MEDS ORDERED: LEVOFLOXACIN250 M1 PO (21:30)
== END 2021-06-13 21:42 | disposition home or self-care (01) ==
LOC: ER 18:20
PROVIDERS: Emergency Medicine; Physician Assistant
DX: J44.0 Chronic obstructive pulmonary disease with (acute) lower respiratory infection (principal); J18.9 Pneumonia, unspecified organism; I12.0 Hypertensive chronic kidney disease with stage 5 chronic kidney disease or end stage renal disease; N18.6 End stage renal disease; Z99.2 Dependence on renal dialysis; Z87.891 Personal history of nicotine dependence; Z79.899 Other long term (current) drug therapy; Z79.82 Long term (current) use of aspirin
CPT/HCPCS: 36415; 36600; 71045; 80053; 82803; 83880; 84484; 85025; 93005; 93010; 99285-25; A9270

== ENCOUNTER 2021-09-15 16:17 | Emergency (ER) | payer MEDICARE, OTHER ==
[~2021-09-15] VITALS: Ht 180.3 cm; Wt 56.7 kg
[~2021-09-15 16:17] MED LIST changes: +LEVOFLOXACIN250 M1 PO
[2021-09-15 17:04] LABS: BASOPHILS ABSOLUTE AUTO 0.05 K/mm3 (0.00-0.23); BASOPHILS PERCENT AUTO 1 % (0-2); EOSINOPHILS ABSOLUTE AUTO 0.25 K/mm3 (0.00-0.68); EOSINOPHILS PERCENT AUTO 4 % (0-6); Hematocrit 38.1 % (37.0-53.0); Hemoglobin 12.2 g/dL (13.5-17.5); IMMATURE GRAN ABSOLUTE AUTO 0.01 K/mm3 (0.00-0.10); IMMATURE GRAN PERCENT AUTO 0 % (0-1); LYMPHOCYTES ABSOLUTE AUTO 1.02 K/mm3 (0.84-5.20); LYMPHOCYTES PERCENT AUTO 18 % (21-46); MONOCYTES ABSOLUTE AUTO 0.68 K/mm3 (0.16-1.47); MONOCYTES PERCENT AUTO 12 % (4-13); Mean Corpuscular HGB 30.6 pg (26.0-34.0); Mean Corpuscular Volume 96 fL (80-100); Mean Platelet Volume 12.7 fL (9.1-12.4); NEUTROPHILS ABSOLUTE AUTO 3.61 K/mm3 (1.96-9.15); NEUTROPHILS PERCENT AUTO 64 % (41-73); NRBC ABSOLUTE 0.03 K/mm3 (0.00-0.02); NRBC Auto 0.5 /100 WBC (0.0-0.2); Platelet Count 182 K/mm3 (150-400); RDW Coefficient Variation 17.4 % (11.7-14.2); RDW Standard Deviation 61.2 fL (35.1-46.3); Red Blood Cell Count 3.99 M/mm3 (4.30-5.90); White Blood Cell Count 5.62 K/mm3 (4.00-11.30)
[2021-09-15 17:35] LABS: Troponin I 0.421 ng/mL (0.000-0.040)
[2021-09-15 17:36] LABS: Albumin, Blood 3.5 g/dL (3.4-5.0); Albumin/Globulin Ratio 1.1 (0.8-1.8); Bun/Creatinine Ratio 14.8 (12.0-20.0); Calcium, Blood 10.2 mg/dL (8.5-10.1); Creatinine, Blood 8.47 mg/dL (0.60-1.20); Globulin, Blood 3.3 g/dL (2.2-4.0); Potassium, Blood 4.9 mmol/L (3.5-5.5); Total Protein, Blood 6.8 g/dL (6.4-8.2)
== END 2021-09-15 21:01 | disposition home or self-care (01) ==
LOC: ER 16:17
PROVIDERS: Physician Assistant
DX: S22.42XA Multiple fractures of ribs, left side, initial encounter for closed fracture (principal); S00.81XA Abrasion of other part of head, initial encounter; K92.1 Melena; I12.0 Hypertensive chronic kidney disease with stage 5 chronic kidney disease or end stage renal disease; N18.6 End stage renal disease; Z99.2 Dependence on renal dialysis; J44.9 Chronic obstructive pulmonary disease, unspecified; Z87.891 Personal history of nicotine dependence; W10.9XXA Fall (on) (from) unspecified stairs and steps, initial encounter
CPT/HCPCS: 36415; 70450; 71260; 72125; 74177; 80053; 84484; 85025; 93005; 93010; 99284-25; Q9967

== ENCOUNTER 2021-12-08 13:54 | Observation (INO) | payer OTHER ==
[~2021-12-08] VITALS: Ht 180.3 cm; Wt 59.8 kg
[~2021-12-08 13:54] MED LIST changes: +ALMACONE SUSPE355 ML PO; +B-COMPLEX WITH1 EAC2 PO; +BUMETANIDE2 M1 PO; +ONDA4ODT MM
[2021-12-08 15:15] LABS: BASOPHILS ABSOLUTE AUTO 0.05 K/mm3 (0.00-0.23); BASOPHILS PERCENT AUTO 1 % (0-2); EOSINOPHILS ABSOLUTE AUTO 0.27 K/mm3 (0.00-0.68); EOSINOPHILS PERCENT AUTO 6 % (0-6); Hematocrit 37.2 % (37.0-53.0); Hemoglobin 11.3 g/dL (13.5-17.5); IMMATURE GRAN ABSOLUTE AUTO 0.01 K/mm3 (0.00-0.10); IMMATURE GRAN PERCENT AUTO 0 % (0-1); LYMPHOCYTES PERCENT AUTO 21 % (21-46); MONOCYTES ABSOLUTE AUTO 0.66 K/mm3 (0.16-1.47); MONOCYTES PERCENT AUTO 14 % (4-13); Mean Corpuscular HGB 27.3 pg (26.0-34.0); Mean Corpuscular HGB Conc 30.4 g/dL (31.5-36.5); Mean Corpuscular Volume 90 fL (80-100); Mean Platelet Volume 10.3 fL (9.1-12.4); NEUTROPHILS ABSOLUTE AUTO 2.72 K/mm3 (1.96-9.15); NEUTROPHILS PERCENT AUTO 58 % (41-73); Platelet Count 287 K/mm3 (150-400); RDW Coefficient Variation 18.8 % (11.7-14.2); RDW Standard Deviation 59.6 fL (35.1-46.3); Red Blood Cell Count 4.14 M/mm3 (4.30-5.90); White Blood Cell Count 4.71 K/mm3 (4.00-11.30)
[2021-12-08 15:29] LABS: Albumin, Blood 2.5 g/dL (3.4-5.0); Albumin/Globulin Ratio 0.6 (0.8-1.8); Bilirubin, Total 0.5 mg/dL (0.1-1.0); Bun/Creatinine Ratio 7.7 (12.0-20.0); Calcium, Blood 9.6 mg/dL (8.5-10.1); Creatinine, Blood 6.65 mg/dL (0.60-1.20); Globulin, Blood 4.2 g/dL (2.2-4.0); Potassium, Blood 4.2 mmol/L (3.5-5.5); Total Protein, Blood 6.7 g/dL (6.4-8.2)
[2021-12-08 18:34] LABS: International Normalized Ratio 1.24; Prothrombin Time Results 12.8 Sec (9.7-11.5)
[2021-12-08] MEDS ORDERED: RENVELA800 MG PO (20:09)
[2021-12-09 04:17] LABS: BASOPHILS ABSOLUTE AUTO 0.03 K/mm3 (0.00-0.23); BASOPHILS PERCENT AUTO 1 % (0-2); EOSINOPHILS ABSOLUTE AUTO 0.34 K/mm3 (0.00-0.68); EOSINOPHILS PERCENT AUTO 8 % (0-6); Hemoglobin 10.5 g/dL (13.5-17.5); IMMATURE GRAN ABSOLUTE AUTO 0.01 K/mm3 (0.00-0.10); IMMATURE GRAN PERCENT AUTO 0 % (0-1); LYMPHOCYTES ABSOLUTE AUTO 0.89 K/mm3 (0.84-5.20); LYMPHOCYTES PERCENT AUTO 20 % (21-46); MONOCYTES ABSOLUTE AUTO 0.73 K/mm3 (0.16-1.47); MONOCYTES PERCENT AUTO 17 % (4-13); Mean Corpuscular HGB 27.6 pg (26.0-34.0); Mean Corpuscular HGB Conc 31.8 g/dL (31.5-36.5); Mean Corpuscular Volume 87 fL (80-100); Mean Platelet Volume 9.8 fL (9.1-12.4); NEUTROPHILS ABSOLUTE AUTO 2.42 K/mm3 (1.96-9.15); NEUTROPHILS PERCENT AUTO 55 % (41-73); Platelet Count 252 K/mm3 (150-400); RDW Coefficient Variation 18.3 % (11.7-14.2); RDW Standard Deviation 57.4 fL (35.1-46.3); White Blood Cell Count 4.42 K/mm3 (4.00-11.30)
[2021-12-09 04:37] LABS: Albumin, Blood 2.1 g/dL (3.4-5.0); Albumin/Globulin Ratio 0.6 (0.8-1.8); Bilirubin, Total 0.4 mg/dL (0.1-1.0); Bun/Creatinine Ratio 7.7 (12.0-20.0); Calcium, Blood 8.9 mg/dL (8.5-10.1); Creatinine, Blood 7.23 mg/dL (0.60-1.20); Globulin, Blood 3.4 g/dL (2.2-4.0); Potassium, Blood 3.9 mmol/L (3.5-5.5); Total Protein, Blood 5.5 g/dL (6.4-8.2)
[2021-12-09 09:22] LABS: Albumin, Blood 2.1 g/dL (3.4-5.0)
[2021-12-09 16:22] LABS: Albumin, Body Fluid 1.9 g/dL
[2021-12-09 16:43] LABS: Lactate Dehydrogenase, Body Fl 122 U/L
--- NOTE | 2021-12-09 17:25 | NUR ---
PATIENT A/OX4, UP WITH 1 ASSIST IN ROOM. L ARM FISTULA, PATIENT DID HAVE DIALYSIS TODAY. TOLERATING RENAL DIET. WORKED WITH PT TODAY AND PATIENT IS AT HIS BASELINE. PARACENTESIS DONE YESTERDAY AND 4L TAKEN OFF. PATIENT IS COOPERATIVE WITH CARE AND CALLS APPROPRIATELY. VSS, ON RA.
[2021-12-09 17:43] LABS: Triglycerides, Body Fluid 46 mg/dL
[2021-12-09 18:26] LABS: Protein, Body Fluid 4.2 g/dL
[2021-12-09 18:39] LABS: Glucose, Body Fluid 116 mg/dL
--- NOTE | 2021-12-10 04:22 | NUR ---
SHIFT SUMMARY PATIENT HAD NO ACUTE CHANGES. AXOX 3 WITH CONFUSION ASKING WHY HE IS HERE. ONE ASSIST TO BSC. [place] PASS. PIV REMAINS INTACT. FISTULA LEFT ARM INTACT. VSS/AFEBRILE. DENIES PAIN, SOB, AND N/V. COOPERATIVE WITH CARE. CALL LIGHT IN REACH. BED IN LOWEST POSITION. WILL CONTINUE TO MONITOR UNTIL DAY SHIFT NURSE ASSUMES CARE.
[2021-12-10 05:23] LABS: Hematocrit 36.5 % (37.0-53.0); Hemoglobin 11.3 g/dL (13.5-17.5)
[2021-12-10 06:01] LABS: Albumin, Blood 2.3 g/dL (3.4-5.0); Anion Gap 7 mmol/L (6-16); Blood Urea Nitrogen 37 mg/dL (8-24); Bun/Creatinine Ratio 6.6 (12.0-20.0); CO2, Blood 36 mmol/L (21-32); Calcium, Blood 9.2 mg/dL (8.5-10.1); Chloride, Blood 96 mmol/L (98-108); Creatinine, Blood 5.57 mg/dL (0.60-1.20); Glomerular Filtration Rate 10 (60-); Glucose, Blood 85 mg/dL (70-99); Magnesium, Blood 2.9 mg/dL (1.6-2.4); Phosphorus, Blood 2.9 mg/dL (2.5-4.9); Potassium, Blood 4.1 mmol/L (3.5-5.5); Sodium, Blood 139 mmol/L (136-145)
--- NOTE | 2021-12-10 14:55 | NUR ---
DISCHARGE SUMMARY PATIENT IS ALERT AND ORIENTED. PATIENT HAS HAD NO COMPLAINTS OF PAIN OR SOB. PATIENT WAS MEDICATED PER EMAR FOR NAUSEA AND VOMITTING X1. NO ACUTE EVENTS THIS SHIFT. VITAL SIGNS REVIEWED. IV REMOVED. PATIENT WAS WHEELED OUT BY COURTNEY MCCAULEY WITH TO PATIENTS CAR.
== END 2021-12-10 14:58 | disposition home or self-care (01) ==
LOC: ER 13:54 → MEDS 13:55 → ER 20:47 → MEDS 20:47
PROVIDERS: Emergency Medicine; Internal Medicine; Internal Medicine Nephrology; Physician Assistant; ADMIT Internal Medicine
DX: R18.8 Other ascites (principal); N18.6 End stage renal disease; I50.23 Acute on chronic systolic (congestive) heart failure; R00.1 Bradycardia, unspecified; I13.2 Hypertensive heart and chronic kidney disease with heart failure and with stage 5 chronic kidney disease, or end stage renal disease; I25.10 Atherosclerotic heart disease of native coronary artery without angina pectoris; J44.9 Chronic obstructive pulmonary disease, unspecified; J96.01 Acute respiratory failure with hypoxia; D64.9 Anemia, unspecified; E88.09 Other disorders of plasma-protein metabolism, not elsewhere classified; K44.9 Diaphragmatic hernia without obstruction or gangrene; R79.89 Other specified abnormal findings of blood chemistry; M30.0 Polyarteritis nodosa; Z99.2 Dependence on renal dialysis; Z95.5 Presence of coronary angioplasty implant and graft; Z96.642 Presence of left artificial hip joint; Z87.891 Personal history of nicotine dependence
CPT/HCPCS: 36415; 49083; 71045; 74176; 80053; 80069; 82040; 82042; 82945; 83615; 83690; 83735; 83880; 84157; 84478; 84484; 85014; 85018; 85025; 85610; 93005; 93010; 93306; 96372; 96374; 96375; 97110; 97162; 99285-25; A9270; G0257; G0378; J0696; J1644; J2405; J3010; P9046

== ENCOUNTER 2021-12-17 11:41 | Emergency (ER) | payer OTHER ==
[~2021-12-17] VITALS: Ht 180.3 cm; Wt 62.6 kg
[~2021-12-17 11:41] MED LIST changes: +RENVELA800 MG PO
[2021-12-17 16:08] LABS: BASOPHILS ABSOLUTE AUTO 0.04 K/mm3 (0.00-0.23); BASOPHILS PERCENT AUTO 1 % (0-2); EOSINOPHILS ABSOLUTE AUTO 0.43 K/mm3 (0.00-0.68); EOSINOPHILS PERCENT AUTO 9 % (0-6); Hematocrit 36.8 % (37.0-53.0); Hemoglobin 11.5 g/dL (13.5-17.5); IMMATURE GRAN ABSOLUTE AUTO 0.02 K/mm3 (0.00-0.10); IMMATURE GRAN PERCENT AUTO 0 % (0-1); LYMPHOCYTES ABSOLUTE AUTO 0.92 K/mm3 (0.84-5.20); LYMPHOCYTES PERCENT AUTO 20 % (21-46); MONOCYTES PERCENT AUTO 13 % (4-13); Mean Corpuscular HGB 27.6 pg (26.0-34.0); Mean Corpuscular HGB Conc 31.3 g/dL (31.5-36.5); Mean Corpuscular Volume 88 fL (80-100); Mean Platelet Volume 10.6 fL (9.1-12.4); NEUTROPHILS ABSOLUTE AUTO 2.68 K/mm3 (1.96-9.15); NEUTROPHILS PERCENT AUTO 57 % (41-73); Platelet Count 271 K/mm3 (150-400); RDW Coefficient Variation 18.8 % (11.7-14.2); RDW Standard Deviation 58.9 fL (35.1-46.3); Red Blood Cell Count 4.17 M/mm3 (4.30-5.90); White Blood Cell Count 4.69 K/mm3 (4.00-11.30)
[2021-12-17 16:15] LABS: Albumin, Blood 2.2 g/dL (3.4-5.0); Albumin/Globulin Ratio 0.5 (0.8-1.8); Bilirubin, Total 0.4 mg/dL (0.1-1.0); Bun/Creatinine Ratio 9.3 (12.0-20.0); Calcium, Blood 9.1 mg/dL (8.5-10.1); Creatinine, Blood 7.49 mg/dL (0.60-1.20); Globulin, Blood 4.1 g/dL (2.2-4.0); Potassium, Blood 4.6 mmol/L (3.5-5.5); Total Protein, Blood 6.3 g/dL (6.4-8.2)
[2021-12-17 16:37] LABS: International Normalized Ratio 1.19; Prothrombin Time Results 12.4 Sec (9.7-11.5)
== END 2021-12-17 17:37 | disposition home or self-care (01) ==
LOC: ER 11:41
PROVIDERS: Physician Assistant
DX: R06.00 Dyspnea, unspecified (principal); N18.9 Chronic kidney disease, unspecified; I12.9 Hypertensive chronic kidney disease with stage 1 through stage 4 chronic kidney disease, or unspecified chronic kidney disease; Z87.891 Personal history of nicotine dependence; Z79.899 Other long term (current) drug therapy
CPT/HCPCS: 36415; 76705; 80053; 83690; 85025; 85610; 85730; 99284-25

== ENCOUNTER 2021-12-28 05:53 | Emergency (ER) | payer OTHER ==
[~2021-12-28] VITALS: Ht 180.3 cm; Wt 61.2 kg
[2021-12-28 07:05] LABS: BASOPHILS ABSOLUTE AUTO 0.04 K/mm3 (0.00-0.23); BASOPHILS PERCENT AUTO 1 % (0-2); EOSINOPHILS ABSOLUTE AUTO 0.62 K/mm3 (0.00-0.68); EOSINOPHILS PERCENT AUTO 14 % (0-6); Hematocrit 34.3 % (37.0-53.0); Hemoglobin 10.8 g/dL (13.5-17.5); IMMATURE GRAN ABSOLUTE AUTO 0.01 K/mm3 (0.00-0.10); IMMATURE GRAN PERCENT AUTO 0 % (0-1); LYMPHOCYTES ABSOLUTE AUTO 0.94 K/mm3 (0.84-5.20); LYMPHOCYTES PERCENT AUTO 21 % (21-46); MONOCYTES ABSOLUTE AUTO 0.53 K/mm3 (0.16-1.47); MONOCYTES PERCENT AUTO 12 % (4-13); Mean Corpuscular HGB 27.8 pg (26.0-34.0); Mean Corpuscular HGB Conc 31.5 g/dL (31.5-36.5); Mean Corpuscular Volume 88 fL (80-100); Mean Platelet Volume 9.7 fL (9.1-12.4); NEUTROPHILS ABSOLUTE AUTO 2.45 K/mm3 (1.96-9.15); NEUTROPHILS PERCENT AUTO 53 % (41-73); Platelet Count 238 K/mm3 (150-400); RDW Standard Deviation 63.8 fL (35.1-46.3); Red Blood Cell Count 3.89 M/mm3 (4.30-5.90); White Blood Cell Count 4.59 K/mm3 (4.00-11.30)
[2021-12-28 07:19] LABS: International Normalized Ratio 1.24; Prothrombin Time Results 12.8 Sec (9.7-11.5)
[2021-12-28 07:25] LABS: Albumin, Blood 2.1 g/dL (3.4-5.0); Albumin/Globulin Ratio 0.6 (0.8-1.8); Bilirubin, Total 0.5 mg/dL (0.1-1.0); Bun/Creatinine Ratio 7.9 (12.0-20.0); Calcium, Blood 9.1 mg/dL (8.5-10.1); Creatinine, Blood 7.71 mg/dL (0.60-1.20); Globulin, Blood 3.7 g/dL (2.2-4.0); Potassium, Blood 4.1 mmol/L (3.5-5.5); Total Protein, Blood 5.8 g/dL (6.4-8.2)
== END 2021-12-28 11:02 | disposition home or self-care (01) ==
LOC: ER 05:53
PROVIDERS: Emergency Medicine
DX: R18.8 Other ascites (principal); R06.00 Dyspnea, unspecified; I12.0 Hypertensive chronic kidney disease with stage 5 chronic kidney disease or end stage renal disease; N18.6 End stage renal disease; Z99.2 Dependence on renal dialysis; Z79.899 Other long term (current) drug therapy
CPT/HCPCS: 71045; 76705; 80053; 83690; 85025; 85610; 93005; 93010; J2405

== ENCOUNTER 2021-12-29 11:10 | Day surgery (SDC) | payer MEDICARE, OTHER ==
[2021-12-29 12:22] LABS: Automated BF WBC Count 0.114 K/mm3 (0-999); Body Fluid WBC Count 114 /mm3 (0-999)
[2021-12-29 12:36] LABS: RBC Count, Body Fluid 8 /mm3 (0-0)
[2021-12-29 12:44] LABS: Albumin, Body Fluid 1.7 g/dL; Amylase, Body Fluid 78 U/L; Protein, Body Fluid 3.8 g/dL
[2021-12-29 13:08] LABS: Total Cell Count, Body Fluid 100
[2021-12-29 13:09] LABS: Appearance, Body Fluid Hazy (Clear); Color, Body Fluid Yellow (None-Yellow)
== END 2021-12-29 23:47 | disposition home or self-care (01) ==
LOC: US 11:10
PROVIDERS: Internal Medicine Nephrology
DX: E87.70 Fluid overload, unspecified (principal)
CPT/HCPCS: 49083; 82042; 82150; 84157; 89051

== ENCOUNTER 2022-01-12 10:10 | Day surgery (SDC) | payer MEDICARE, OTHER ==
[2022-01-12] MEDS ORDERED: LORA.5 PO (10:58)
== END 2022-01-12 12:31 | disposition home or self-care (01) ==
LOC: ATC 10:10
DX: R18.8 Other ascites (principal); E87.70 Fluid overload, unspecified
CPT/HCPCS: 49083; P9041; P9046

== ENCOUNTER 2022-02-02 08:18 | Day surgery (SDC) | payer MEDICARE, OTHER | END 2022-02-02 23:13 | disposition home or self-care (01) | LOC: US 08:18 | PROVIDERS: Anesthesiology | DX: E87.70 Fluid overload, unspecified (principal); R18.8 Other ascites; Z20.822 Contact with and (suspected) exposure to COVID-19 | CPT/HCPCS: 49083; 87426; 87811 ==

== ENCOUNTER 2022-02-11 08:09 | Day surgery (SDC) | payer MEDICARE, OTHER | END 2022-02-15 23:40 | disposition home or self-care (01) | LOC: US 08:09 | DX: E87.70 Fluid overload, unspecified (principal); R18.8 Other ascites | CPT/HCPCS: 49083 ==

== ENCOUNTER 2022-02-23 08:09 | Day surgery (SDC) | payer MEDICARE, OTHER | END 2022-02-23 22:41 | disposition home or self-care (01) | LOC: US 08:09 | DX: E87.70 Fluid overload, unspecified (principal) | CPT/HCPCS: 49083 ==

== ENCOUNTER → 2022-03-01 | Outpatient (CLI) | payer MEDICARE, OTHER ==
[2022-03-01 14:53] LABS: BASOPHILS ABSOLUTE AUTO 0.05 K/mm3 (0.00-0.23); BASOPHILS PERCENT AUTO 1 % (0-2); EOSINOPHILS ABSOLUTE AUTO 1.24 K/mm3 (0.00-0.68); EOSINOPHILS PERCENT AUTO 21 % (0-6); Hematocrit 30.1 % (37.0-53.0); Hemoglobin 9.8 g/dL (13.5-17.5); IMMATURE GRAN ABSOLUTE AUTO 0.02 K/mm3 (0.00-0.10); IMMATURE GRAN PERCENT AUTO 0 % (0-1); LYMPHOCYTES ABSOLUTE AUTO 1.04 K/mm3 (0.84-5.20); LYMPHOCYTES PERCENT AUTO 18 % (21-46); MONOCYTES ABSOLUTE AUTO 0.54 K/mm3 (0.16-1.47); MONOCYTES PERCENT AUTO 9 % (4-13); Mean Corpuscular HGB 30.6 pg (26.0-34.0); Mean Corpuscular HGB Conc 32.6 g/dL (31.5-36.5); Mean Corpuscular Volume 94 fL (80-100); Mean Platelet Volume 9.7 fL (9.1-12.4); NEUTROPHILS ABSOLUTE AUTO 3.03 K/mm3 (1.96-9.15); NEUTROPHILS PERCENT AUTO 51 % (41-73); Platelet Count 198 K/mm3 (150-400); RDW Standard Deviation 62.4 fL (35.1-46.3); White Blood Cell Count 5.92 K/mm3 (4.00-11.30)
[2022-03-01 15:17] LABS: International Normalized Ratio 1.15
== END | disposition home or self-care (01) ==
LOC: EDSTATUS 09:08 → LAB DAV 14:22
PROVIDERS: Internal Medicine Nephrology
DX: N18.9 Chronic kidney disease, unspecified (principal); D63.1 Anemia in chronic kidney disease; Z79.899 Other long term (current) drug therapy
CPT/HCPCS: 85025; 85610; 85730

== ENCOUNTER 2022-03-04 08:44 | Day surgery (SDC) | payer MEDICARE, OTHER | END 2022-03-04 23:10 | disposition home or self-care (01) | LOC: US 08:44 | DX: E87.70 Fluid overload, unspecified (principal) | CPT/HCPCS: 76705 ==

== ENCOUNTER 2022-03-16 08:58 | Day surgery (SDC) | payer MEDICARE, OTHER | END 2022-03-16 23:26 | disposition home or self-care (01) | LOC: US 08:58 | DX: K74.60 Unspecified cirrhosis of liver (principal); R18.8 Other ascites; E87.70 Fluid overload, unspecified | CPT/HCPCS: 49083 ==

== ENCOUNTER 2022-04-06 08:26 | Day surgery (SDC) | payer MEDICARE, OTHER | END 2022-04-07 00:01 | disposition home or self-care (01) | LOC: US 08:26 | DX: E87.70 Fluid overload, unspecified (principal) | CPT/HCPCS: 49083 ==

== ENCOUNTER 2022-04-15 08:58 | Day surgery (SDC) | payer MEDICARE, OTHER | END 2022-04-15 22:42 | disposition home or self-care (01) | LOC: US 08:58 | DX: E87.70 Fluid overload, unspecified (principal); R18.8 Other ascites | CPT/HCPCS: 49083 ==

== ENCOUNTER 2022-04-27 08:39 | Day surgery (SDC) | payer MEDICARE, OTHER | END 2022-04-27 23:25 | disposition home or self-care (01) | LOC: US 08:39 | DX: E87.70 Fluid overload, unspecified (principal) | CPT/HCPCS: 49083 ==

== ENCOUNTER 2022-05-06 08:39 | Day surgery (SDC) | payer MEDICARE, OTHER ==
--- NOTE | 2022-05-06 11:02 | NUR ---
RADIOLOGY CALLED AND STATED THAT PT WILL NOT NEED ANY ALBUMIN TODAY.
== END 2022-05-06 23:13 | disposition home or self-care (01) ==
LOC: US 08:39
DX: E87.70 Fluid overload, unspecified (principal)
CPT/HCPCS: 49083

== ENCOUNTER 2022-06-10 08:54 | Day surgery (SDC) | payer MEDICARE, OTHER | END 2022-06-10 23:22 | disposition home or self-care (01) | LOC: US 08:54 | DX: E87.70 Fluid overload, unspecified (principal); R18.8 Other ascites | CPT/HCPCS: 76705 ==

== ENCOUNTER 2022-06-22 08:50 | Day surgery (SDC) | payer MEDICARE, OTHER | END 2022-06-22 23:08 | disposition home or self-care (01) | LOC: US 08:50 | DX: E87.70 Fluid overload, unspecified (principal); R18.8 Other ascites | CPT/HCPCS: 49083 ==

== ENCOUNTER 2022-07-13 08:44 | Day surgery (SDC) | payer MEDICARE, OTHER ==
[2022-07-14] MEDS ORDERED: QUET100 PO (09:30)
[2022-07-14] MEDS ORDERED: ISOMON20 PO (09:31)
== END 2022-07-13 23:18 | disposition home or self-care (01) ==
LOC: US 08:44
DX: E87.70 Fluid overload, unspecified (principal); R18.8 Other ascites
CPT/HCPCS: 49083

== ENCOUNTER 2022-08-03 08:55 | Day surgery (SDC) | payer MEDICARE, OTHER ==
[~2022-08-03 08:55] MED LIST changes: +ISOMON20 PO; +QUET100 PO
== END 2022-08-03 22:58 | disposition home or self-care (01) ==
LOC: US 08:55
DX: E87.70 Fluid overload, unspecified (principal); R18.8 Other ascites
CPT/HCPCS: 49083

== ENCOUNTER 2022-08-04 08:31 | Day surgery (SDC) | payer MEDICARE, OTHER ==
[~2022-08-04] VITALS: Ht 180.3 cm; Wt 57.8 kg
--- NOTE | 2022-08-04 10:07 | NUR ---
Wheelchaired in Day Surgery. History, Chart, Medications and Allergies reviewed before start of procedure. Lungs clear T/O to Anteriorly. Pre-Op teaching done. Pt verbalizes understanding.
--- NOTE | 2022-08-04 10:11 | NUR ---
HEARING AID TO LEFT EAR REMAINED IN PATIENT. DENTURES LEFT AT HOME PER PATIENT.
--- NOTE | 2022-08-04 11:03 | NUR ---
08/04/22 1103 Roro Banda PER [facility] CALLED REGARDING CONTRAINDICATOR FOR TORADOL IN THE ORTHO COCKTAIL. ANESTHESIA AND SURGEON MADE AWARE AND APPROVED GIVING ORTHO COCKTAIL WITH TORADOL.
--- NOTE | 2022-08-04 15:30 | NUR ---
TELEPHONE CALL WITH PHARMACY REQUESTING I DISCUSS DC'G TORADOL SCHEDULE BASED ON PT KIDNEY FUNCTION AND DIALYSIS. TELEPHONE CALL WITH DR CISNEROS AND RECEIVED ORDER TO DC TORADOL. RELAYED INFO TO PHARMACY -[facility].
--- NOTE | 2022-08-04 16:58 | NUR ---
SHIFT SUMMARY PT A&OX4, VSS/3L, LORETTA PO, PAIN MANAGED, AWAITING POST-OP VOID, PHYSICAL THERAPY EVAL'D/PT AMB FWW/GB SBA, UP TO CHAIR. WILL REPORT TO ONCOMING NOC RN.
[2022-08-05 04:15] LABS: BASOPHILS ABSOLUTE AUTO 0.03 K/mm3 (0.00-0.23); BASOPHILS PERCENT AUTO 0 % (0-2); EOSINOPHILS ABSOLUTE AUTO 0.22 K/mm3 (0.00-0.68); EOSINOPHILS PERCENT AUTO 3 % (0-6); Hematocrit 23.4 % (37.0-53.0); Hemoglobin 7.5 g/dL (13.5-17.5); IMMATURE GRAN ABSOLUTE AUTO 0.05 K/mm3 (0.00-0.10); IMMATURE GRAN PERCENT AUTO 1 % (0-1); LYMPHOCYTES ABSOLUTE AUTO 0.82 K/mm3 (0.84-5.20); LYMPHOCYTES PERCENT AUTO 10 % (21-46); MONOCYTES ABSOLUTE AUTO 1.04 K/mm3 (0.16-1.47); MONOCYTES PERCENT AUTO 13 % (4-13); Mean Corpuscular HGB 29.6 pg (26.0-34.0); Mean Corpuscular HGB Conc 32.1 g/dL (31.5-36.5); Mean Corpuscular Volume 93 fL (80-100); Mean Platelet Volume 11.2 fL (9.1-12.4); NEUTROPHILS ABSOLUTE AUTO 6.04 K/mm3 (1.96-9.15); NEUTROPHILS PERCENT AUTO 74 % (41-73); Platelet Count 157 K/mm3 (150-400); RDW Coefficient Variation 17.2 % (11.7-14.2); Red Blood Cell Count 2.53 M/mm3 (4.30-5.90)
[2022-08-05 04:36] LABS: Bun/Creatinine Ratio 10.7 (12.0-20.0); Creatinine, Blood 7.46 mg/dL (0.60-1.20); Magnesium, Blood 2.2 mg/dL (1.6-2.4); Potassium, Blood 4.6 mmol/L (3.5-5.5)
--- NOTE | 2022-08-05 05:10 | NUR ---
SHIFT SUMMARY: PODx1 R PAMELA. PT RESTED COMFORTABLY T/O THE NIGHT. REPORTED MINIMAL PAIN THAT WAS WELL MANAGED VIA EMAR ORDERS. X2 SURGICAL DRESSINGS IN PLACE. PT REPORTS THAT DUE TO DIALYSIS AND HIS CKD HE HAS A DIFFICULT TIME URINATING. TROUBLE CREATING A POST OPERATIVE VOID DUE TO THIS ISSUE. PT WAS BLADDER SCANNED. TOLERATING PO FLUIDS AND FOOD AT THIS TIME. PT RESTING WITH CALL LIGHT IN REACH. PLANS TO WORK WITH THERAPY TODAY FOR POSSIBLE DISCHARGE.
[2022-08-05] MEDS ORDERED: SULTRIDS PO ×2 (08:06→08:15)
[2022-08-05] MEDS ORDERED: ASPIR 8181 M1 PO ×2 (08:07→08:15)
[2022-08-05] MEDS ORDERED: Percocet 5-3251 EACH PO (08:08)
--- NOTE | 2022-08-05 14:41 | NUR ---
DISCHARGE SUMMARY PT A&OX4, VSS/2L BASELINE, AMB FWW/GB MIN ASSIST/UP TO CHAIR, DIALYSIS TODAY, LORETTA PO-DECLINED LUNCH, UNABLE TO VOID-PT REP NORMAL FOR HIM WITH CKD/DIALYSIS TODAY, PAIN MANAGED, IV DC'D. DC INS PROVIDED. PT REP UNDERSTANDING THOSE INSTRUCTIONS INCLUDING DRESSING CHANGES, MEDS: PERC/BACTRIM/ASA, FU WITH SURGEON AND SCHEDULED PHYSICAL THERAPY, OK TO SHOWER. LEFT FLOOR VIA WC WITH COUNTY NURSE, TO GO HOME WITH [place], WITH ALL PERSONAL POSSESSIONS INCLUDING DC PACKET, AQUACEL DRESSINGS.
== END 2022-08-05 14:25 | disposition home or self-care (01) ==
LOC: SURS 08:31 → ORSCMMR 08:31 → SURS 13:15 → ORSCMMR 08-05 14:25
PROVIDERS: Orthopaedic Surgery
PROC: 0SR90JA Replacement of Right Hip Joint with Synthetic Substitute, Uncemented, Open Approach (ICD-10-PCS; principal; 2022-08-04 11:00)
DX: M16.11 Unilateral primary osteoarthritis, right hip (principal); I25.10 Atherosclerotic heart disease of native coronary artery without angina pectoris; N18.6 End stage renal disease; E78.00 Pure hypercholesterolemia, unspecified; Z79.899 Other long term (current) drug therapy
CPT/HCPCS: 36415; 72170; 80048; 83735; 85025; 88300; 97110; 97116; 97162; 97166; 97530; 97535; A9270; C1713; C1776; J0171; J0690; J0735; J1100; J1885; J2250; J2405; J2704; J2795; J3010; J3370; J7030; J7120

== ENCOUNTER 2022-08-12 06:13 | Emergency (ER) | payer MEDICARE, OTHER ==
[~2022-08-12] VITALS: Ht 180.3 cm; Wt 65.8 kg
[~2022-08-12 06:13] MED LIST changes: +ASPIR 8181 M1 PO; +SULTRIDS PO
[2022-08-12 07:07] LABS: BASOPHILS ABSOLUTE AUTO 0.05 K/mm3 (0.00-0.23); BASOPHILS PERCENT AUTO 1 % (0-2); EOSINOPHILS ABSOLUTE AUTO 0.46 K/mm3 (0.00-0.68); EOSINOPHILS PERCENT AUTO 8 % (0-6); Hematocrit 25.3 % (37.0-53.0); IMMATURE GRAN ABSOLUTE AUTO 0.04 K/mm3 (0.00-0.10); IMMATURE GRAN PERCENT AUTO 1 % (0-1); LYMPHOCYTES PERCENT AUTO 13 % (21-46); MONOCYTES ABSOLUTE AUTO 0.59 K/mm3 (0.16-1.47); MONOCYTES PERCENT AUTO 11 % (4-13); Mean Corpuscular HGB 29.3 pg (26.0-34.0); Mean Corpuscular HGB Conc 31.6 g/dL (31.5-36.5); Mean Corpuscular Volume 93 fL (80-100); Mean Platelet Volume 10.6 fL (9.1-12.4); NEUTROPHILS ABSOLUTE AUTO 3.69 K/mm3 (1.96-9.15); NEUTROPHILS PERCENT AUTO 67 % (41-73); NRBC ABSOLUTE 0.03 K/mm3 (0.00-0.02); NRBC Auto 0.5 /100 WBC (0.0-0.2); Platelet Count 343 K/mm3 (150-400); RDW Coefficient Variation 17.7 % (11.7-14.2); RDW Standard Deviation 58.5 fL (35.1-46.3); Red Blood Cell Count 2.73 M/mm3 (4.30-5.90); White Blood Cell Count 5.53 K/mm3 (4.00-11.30)
[2022-08-12 07:27] LABS: Magnesium, Blood 2.7 mg/dL (1.6-2.4)
[2022-08-12 07:28] LABS: Albumin, Blood 3.3 g/dL (3.4-5.0); Albumin/Globulin Ratio 0.7 (0.8-1.8); Bilirubin, Total 0.8 mg/dL (0.1-1.0); Bun/Creatinine Ratio 9.4 (12.0-20.0); Calcium, Blood 10.5 mg/dL (8.5-10.1); Creatinine, Blood 9.46 mg/dL (0.60-1.20); Globulin, Blood 4.5 g/dL (2.2-4.0); Potassium, Blood 3.7 mmol/L (3.5-5.5); Total Protein, Blood 7.8 g/dL (6.4-8.2)
[2022-08-12 08:22] LABS: Influenza A, PCR NEGATIVE (NEGATIVE); Influenza B, PCR NEGATIVE (NEGATIVE); Resp Syncytial Virus, PCR NEGATIVE (NEGATIVE); SARS-Cov-2 (COVID-19) PCR, MMC NEGATIVE (NEGATIVE)
== END 2022-08-12 12:34 | disposition home or self-care (01) ==
LOC: ER 06:13
PROVIDERS: Emergency Medicine
DX: R11.2 Nausea with vomiting, unspecified (principal); R10.13 Epigastric pain; I12.0 Hypertensive chronic kidney disease with stage 5 chronic kidney disease or end stage renal disease; N18.6 End stage renal disease; J44.9 Chronic obstructive pulmonary disease, unspecified; Z99.2 Dependence on renal dialysis; Z79.82 Long term (current) use of aspirin; Z87.891 Personal history of nicotine dependence; Z20.822 Contact with and (suspected) exposure to COVID-19; Z96.641 Presence of right artificial hip joint; Z79.899 Other long term (current) drug therapy
CPT/HCPCS: 0241U; 70450; 71045; 73502; 74176; 80053; 83735; 84484; 85025; 93005; 93010; J2405; J2765; J7030

== ENCOUNTER 2022-08-13 11:50 | Observation (INO) | payer MEDICARE, OTHER ==
[~2022-08-13] VITALS: Ht 162.6 cm; Wt 47.6 kg
[2022-08-13 13:30] LABS: BASOPHILS ABSOLUTE AUTO 0.04 K/mm3 (0.00-0.23); BASOPHILS PERCENT AUTO 0 % (0-2); EOSINOPHILS ABSOLUTE AUTO 0.41 K/mm3 (0.00-0.68); EOSINOPHILS PERCENT AUTO 4 % (0-6); Hematocrit 22.6 % (37.0-53.0); Hemoglobin 7.3 g/dL (13.5-17.5); IMMATURE GRAN ABSOLUTE AUTO 0.09 K/mm3 (0.00-0.10); IMMATURE GRAN PERCENT AUTO 1 % (0-1); LYMPHOCYTES ABSOLUTE AUTO 0.87 K/mm3 (0.84-5.20); LYMPHOCYTES PERCENT AUTO 8 % (21-46); MONOCYTES ABSOLUTE AUTO 0.85 K/mm3 (0.16-1.47); MONOCYTES PERCENT AUTO 7 % (4-13); Mean Corpuscular HGB 30.2 pg (26.0-34.0); Mean Corpuscular HGB Conc 32.3 g/dL (31.5-36.5); Mean Corpuscular Volume 93 fL (80-100); Mean Platelet Volume 9.8 fL (9.1-12.4); NEUTROPHILS ABSOLUTE AUTO 9.36 K/mm3 (1.96-9.15); NEUTROPHILS PERCENT AUTO 81 % (41-73); NRBC ABSOLUTE 0.02 K/mm3 (0.00-0.02); NRBC Auto 0.2 /100 WBC (0.0-0.2); Platelet Count 319 K/mm3 (150-400); RDW Coefficient Variation 18.2 % (11.7-14.2); Red Blood Cell Count 2.42 M/mm3 (4.30-5.90); White Blood Cell Count 11.62 K/mm3 (4.00-11.30)
[2022-08-13 13:50] LABS: Magnesium, Blood 2.6 mg/dL (1.6-2.4)
[2022-08-13 13:57] LABS: Albumin/Globulin Ratio 0.8 (0.8-1.8); Bilirubin, Total 0.6 mg/dL (0.1-1.0); Calcium, Blood 9.7 mg/dL (8.5-10.1); Creatinine, Blood 11.1 mg/dL (0.60-1.20); Globulin, Blood 3.8 g/dL (2.2-4.0); Potassium, Blood 4.6 mmol/L (3.5-5.5); Total Protein, Blood 6.8 g/dL (6.4-8.2)
[2022-08-13 16:37] LABS: Percent Saturation 14.8 % (20.0-50.0)
--- NOTE | 2022-08-13 18:15 | NUR ---
PT TRANSFERRED TO UNIT VIA STRETCHER, A/O X 2-3, PLEASANT, TRANSFERRED HIMSELF TO BED. ORIENTED TO ROOM/CALL LIGHT. THIS RN UPDATED TO PT'S CONDITION VIA TELEPHONE. VSS, SPO2 91% 2L NC. CALL LIGHT IN REACH, BED IN LOWEST POSITION, CALL LIGHT WITHIN REACH
[2022-08-13 20:55] LABS: Hematocrit 21.2 % (37.0-53.0); Hemoglobin 6.9 g/dL (13.5-17.5)
--- NOTE | 2022-08-14 01:18 | NUR ---
VASCULAR ACCESS PT CAME IN WITH A FIELD START FROM EMS, PT PULLED THIS OUT AND DOES NOT HAVE IV ACCESS AT THIS TIME.
[2022-08-14 05:10] LABS: Hematocrit 22.7 % (37.0-53.0); Hemoglobin 7.3 g/dL (13.5-17.5); Mean Corpuscular HGB 29.6 pg (26.0-34.0); Mean Corpuscular HGB Conc 32.2 g/dL (31.5-36.5); Mean Corpuscular Volume 92 fL (80-100); Mean Platelet Volume 9.5 fL (9.1-12.4); NRBC ABSOLUTE 0.02 K/mm3 (0.00-0.02); NRBC Auto 0.3 /100 WBC (0.0-0.2); Platelet Count 332 K/mm3 (150-400); RDW Coefficient Variation 18.4 % (11.7-14.2); RDW Standard Deviation 58.6 fL (35.1-46.3); Red Blood Cell Count 2.47 M/mm3 (4.30-5.90); White Blood Cell Count 7.62 K/mm3 (4.00-11.30)
[2022-08-14 05:34] LABS: Albumin/Globulin Ratio 0.7 (0.8-1.8); Bilirubin, Total 0.8 mg/dL (0.1-1.0); Bun/Creatinine Ratio 7.1 (12.0-20.0); Calcium, Blood 9.6 mg/dL (8.5-10.1); Creatinine, Blood 7.06 mg/dL (0.60-1.20); Globulin, Blood 4.2 g/dL (2.2-4.0); Magnesium, Blood 2.3 mg/dL (1.6-2.4); Phosphorus, Blood 4.3 mg/dL (2.5-4.9); Potassium, Blood 3.6 mmol/L (3.5-5.5); Total Protein, Blood 7.2 g/dL (6.4-8.2)
--- NOTE | 2022-08-14 07:49 | NUR ---
SHIFT SUMMARY PT ADMITTED FOR MISSING DIALYSIS YESTERDAY, DIALYSIS ORDERED AND PERFORMED BY PAN WASHER HAND AT START OF SHIFT, NO EVENTS DURING THAT TIME PER PAN WASHER HAND REPORT, PT PULLED IV OUT D/T CONFUSION, PT ATTEMPTED TO GET UP AND GET DRESSED TO GO HOME DURING THE FIRST PART OF THE SHIFT, PT EASILY REORIENTS. NO OTHER EVENTS THIS SHIFT, CALL LIGHT IN REACH, REPORT GIVEN TO DAY RN.
[2022-08-14 11:34] LABS: Amylase, Blood 97 U/L (25-115)
--- NOTE | 2022-08-14 12:50 | NUR ---
0715-RECVD REPORT FROM PREVIOUS SHIFT RN, PT SLEEPING IN BED, BED IN LOWEST POSITION, BEDRAILS UP X 2, CALL LIGHT WITHIN REACH 0930-PT WAS ABLE TO KEEP DOWN HOT CEREAL, STATED HE WOULD LIKE TO TRY TO TAKE PILLS. AFTER MEDICATIONS ADMINSTERED PER NOV, PT VOMITED THEM UP, PILLS VISUALIZED 1015-DR GRANADOS ROUNDING ON PT, ORDERS RECEIVED 1155-PT TO IMAGING FOR CT 1215-PT RETURNED TO ROOM FROM IMAGING VIA CART WITH O2, IN ROOM WITH PT
--- NOTE | 2022-08-14 16:14 | NUR ---
pt's visited x 2 this shift for >2 hr each time. Pt continues to be nauseous, emesis x 4 this shift, will take a few bites of meal trays and provided snacks only. pt currently sleeping, will be left to rest until dinner tray arrives.
--- NOTE | 2022-08-15 05:06 | NUR ---
SHIFT SUMMARY NO ACUTE CHANGES TO REPORT THIS SHIFT, PT HAS RESTED T/O THE NIGHT. HE HAS NOT HAD ANY GI COMPLAINTS AND HAS HAD NO N/V. HAS BEEN ABLE TO TOELRATE HIS MEDS. PT HAS BEEN ORIENTED TO PLACE AND SITUATION AND ANSWERS MY QUESTIONS APPROPRIATELY. VITALS ARE STABLE. BED IN LOWEST POSITION, CALL LIGHT WITHIN REACH.
[2022-08-15 06:25] LABS: Hematocrit 27.3 % (37.0-53.0); Hemoglobin 8.6 g/dL (13.5-17.5)
[2022-08-15 06:58] LABS: Magnesium, Blood 2.6 mg/dL (1.6-2.4)
[2022-08-15 07:03] LABS: Albumin, Blood 3.1 g/dL (3.4-5.0); Anion Gap 13 mmol/L (6-16); Blood Urea Nitrogen 61 mg/dL (8-24); CO2, Blood 31 mmol/L (21-32); Calcium, Blood 9.8 mg/dL (8.5-10.1); Chloride, Blood 91 mmol/L (98-108); Creatinine, Blood 8.67 mg/dL (0.60-1.20); Glomerular Filtration Rate 6 (60-); Glucose, Blood 111 mg/dL (70-99); Phosphorus, Blood 5.8 mg/dL (2.5-4.9); Potassium, Blood 3.7 mmol/L (3.5-5.5); Sodium, Blood 135 mmol/L (136-145)
--- NOTE | 2022-08-15 09:22 | NUR ---
PT WAS TAKEN TO DIALYSIS AT 0922.
--- NOTE | 2022-08-15 12:38 | NUR ---
PT BACK FROM DIALYSIS.
--- NOTE | 2022-08-15 12:39 | NUR ---
THIS RN ASSISTED PT TO THE BATHROOM WITH GAIT BELT AND WALKER. ONCE IN THE BATHROOM PT DECLINED TO ALLOW STAFF TO ASSIST HIM TO SAFELY SIT ON THE TOILET. EDUCATION REGARDING RISK FOR FALLS BUT PT TOLD STAFF TO LEAVE HIM ALONE. PT IS ALERT AND ORIENTED AT THIS TIME. HE WAS LEFT STANDING SAFELY IN FRONT OF THE TOILET AND EDUCATED TO CALL FOR ASSISTANCE WHEN FINISHED IN THE RESTROOM.
--- NOTE | 2022-08-15 18:44 | NUR ---
SHIFT SUMMARY PT HAD DIALYSIS TODAY AND TOLERATED WELL. PT HAS BEEN ABLE TO EAT SMALL AMOUNTS OF FOOD WITH MEALS. HE HAS BEEN NAUSEATED BUT HAS NOT REQUIRED ZOFRAN OR REGLAN. PT HAD A BM TODAY. HE HAS BEEN ALERT AND ORIENTED T/O THE DAY. BED ALARM IN PLACE FOR SAFETY SINCE PT IS FORGETFUL/CHOOSES NOT TO USE HIS CALL LIGHT; PT PROVIDED FALL PREVENTION EDUCATION. WILL MONITOR UNTIL REPORT TO STEVAN RN.
[2022-08-16 05:46] LABS: Hematocrit 27.6 % (37.0-53.0); Hemoglobin 8.4 g/dL (13.5-17.5)
--- NOTE | 2022-08-16 05:52 | NUR ---
SHIFT SUMMARY A/O X3-FORGETFUL AT TIMES, BED ALARM ON FOR SAFETY. VITAL SIGNS STABLE. NO REPORT OF N/V OR PAIN THROUGHOUT SHIFT. BEDREST THROUGHOUT SHIFT. USING URINAL TO VOID. TOLERATED PO INTAKE. NO ACUTE CHANGES. WILL CONTINUE TO MONITOR AND REPORT TO ONCOMING RN.
[2022-08-16 06:04] LABS: Albumin, Blood 3.1 g/dL (3.4-5.0); Anion Gap 7 mmol/L (6-16); Blood Urea Nitrogen 40 mg/dL (8-24); Bun/Creatinine Ratio 6.4 (12.0-20.0); CO2, Blood 34 mmol/L (21-32); Calcium, Blood 9.8 mg/dL (8.5-10.1); Chloride, Blood 98 mmol/L (98-108); Creatinine, Blood 6.25 mg/dL (0.60-1.20); Glomerular Filtration Rate 9 (60-); Glucose, Blood 98 mg/dL (70-99); Magnesium, Blood 2.3 mg/dL (1.6-2.4); Phosphorus, Blood 4.1 mg/dL (2.5-4.9); Potassium, Blood 3.8 mmol/L (3.5-5.5); Sodium, Blood 139 mmol/L (136-145)
[2022-08-16] MEDS ORDERED: DOCUZEN 8.6-501 EACH PO (10:38)
[2022-08-16] MEDS ORDERED: METO5A PO (10:41)
--- NOTE | 2022-08-16 12:09 | NUR ---
DISCHARGE @1115 PATIENT MET CRITERIA PER MD. INSTRUCITONS GIVEN, PATIENT AND SPOUSE AKNOWLEDGE UNDERSTANDING. IV TAKEN OUT INTACT. PATIENT LEAVES VIA W/C TO CAR OUT WITH SPOUSE.
== END 2022-08-16 12:58 | disposition home or self-care (01) ==
LOC: ER 11:50 → ERHOLD 11:51 → SURS 11:51
PROVIDERS: Emergency Medicine; Internal Medicine Nephrology; Nurse Practitioner Acute Care; ADMIT Internal Medicine
DX: I13.2 Hypertensive heart and chronic kidney disease with heart failure and with stage 5 chronic kidney disease, or end stage renal disease (principal); N18.6 End stage renal disease; I50.23 Acute on chronic systolic (congestive) heart failure; J44.9 Chronic obstructive pulmonary disease, unspecified; R79.89 Other specified abnormal findings of blood chemistry; G47.33 Obstructive sleep apnea (adult) (pediatric); D63.1 Anemia in chronic kidney disease; K22.70 Barrett's esophagus without dysplasia; I25.10 Atherosclerotic heart disease of native coronary artery without angina pectoris; R55 Syncope and collapse; Z79.899 Other long term (current) drug therapy; Z79.82 Long term (current) use of aspirin; Z99.2 Dependence on renal dialysis; Z95.5 Presence of coronary angioplasty implant and graft; Z87.891 Personal history of nicotine dependence
CPT/HCPCS: 36415; 70450; 74176; 80053; 80069; 82140; 82150; 82728; 83540; 83550; 83690; 83735; 84100; 84484; 85014; 85018; 85025; 85027; 93005; 93010; 94760; 96372; 96375; 96376; 97162; 97166; 97535; A9270; C9113; G0257; G0378; J0881; J1644; J2405; J2765; J7030

== ENCOUNTER 2022-09-07 08:36 | Day surgery (SDC) | payer MEDICARE, OTHER ==
[~2022-09-07 08:36] MED LIST changes: +DOCUZEN 8.6-501 EACH PO; +METO5A PO
== END 2022-09-07 22:37 | disposition home or self-care (01) ==
LOC: US 08:36
DX: E87.70 Fluid overload, unspecified (principal); R18.8 Other ascites
CPT/HCPCS: 76705

== ENCOUNTER 2022-10-07 08:37 | Day surgery (SDC) | payer MEDICARE, OTHER | END 2022-10-07 23:24 | disposition home or self-care (01) | LOC: US 08:37 | DX: E87.70 Fluid overload, unspecified (principal) | CPT/HCPCS: 76705 ==

== ENCOUNTER 2022-11-18 02:29 | Day surgery (SDC) | payer MEDICARE, OTHER | END 2022-11-18 09:51 | disposition home or self-care (01) | LOC: ATC 02:29 | DX: I12.0 Hypertensive chronic kidney disease with stage 5 chronic kidney disease or end stage renal disease (principal); N18.6 End stage renal disease; Z99.2 Dependence on renal dialysis; J44.9 Chronic obstructive pulmonary disease, unspecified; F32.A Depression, unspecified; F41.9 Anxiety disorder, unspecified; R18.8 Other ascites | CPT/HCPCS: 36415; 36430; 86850; 86900; 86901; 86923; J7050; P9016 ==

== ENCOUNTER 2022-12-27 10:43 | Observation (INO) | payer OTHER ==
[~2022-12-27] VITALS: Ht 170.2 cm; Wt 47.6 kg
[2022-12-27 11:15] LABS: Calcium, Ionized (POC) 1.01 mmol/L (1.10-1.46); Chloride (POC) 93 mmol/L (98-108); Creatinine (POC) 5.6 mg/dL (0.8-1.3); Glucose (ISTAT POC) 101 mg/dL (70-99); Hemoglobin (POC) 10.5 g/dL (13.5-17.5); Potassium (POC) 3.9 mmol/L (3.5-5.5); Sodium (POC) 136 mmol/L (135-148); Total CO2 (POC) 31 mmol/L (21-32)
[2022-12-27 11:19] LABS: BASOPHILS PERCENT AUTO 0 % (0-2); EOSINOPHILS PERCENT AUTO 0 % (0-6); Hematocrit 27.7 % (37.0-53.0); Hemoglobin 8.8 g/dL (13.5-17.5); IMMATURE GRAN ABSOLUTE AUTO 0.05 K/mm3 (0.00-0.10); IMMATURE GRAN PERCENT AUTO 1 % (0-1); LYMPHOCYTES ABSOLUTE AUTO 0.24 K/mm3 (0.84-5.20); LYMPHOCYTES PERCENT AUTO 3 % (21-46); MONOCYTES ABSOLUTE AUTO 0.22 K/mm3 (0.16-1.47); MONOCYTES PERCENT AUTO 3 % (4-13); Mean Corpuscular HGB 27.9 pg (26.0-34.0); Mean Corpuscular HGB Conc 31.8 g/dL (31.5-36.5); Mean Corpuscular Volume 88 fL (80-100); Mean Platelet Volume 11.7 fL (9.1-12.4); NEUTROPHILS ABSOLUTE AUTO 6.56 K/mm3 (1.96-9.15); NEUTROPHILS PERCENT AUTO 93 % (41-73); RDW Standard Deviation 70.5 fL (35.1-46.3); Red Blood Cell Count 3.15 M/mm3 (4.30-5.90); White Blood Cell Count 7.07 K/mm3 (4.00-11.30)
[2022-12-27 11:34] LABS: Albumin, Blood 1.8 g/dL (3.4-5.0); Albumin/Globulin Ratio 0.4 (0.8-1.8); Bilirubin, Total 1.2 mg/dL (0.1-1.0); Bun/Creatinine Ratio 18.3 (12.0-20.0); Calcium, Blood 8.3 mg/dL (8.5-10.1); Creatinine, Blood 5.15 mg/dL (0.60-1.20); Globulin, Blood 4.4 g/dL (2.2-4.0); Magnesium, Blood 2.1 mg/dL (1.6-2.4); Total Protein, Blood 6.2 g/dL (6.4-8.2)
[2022-12-27 12:01] LABS: Base Excess Venous 7.6 mmol/L; Bicarbonate Venous 30.8 mmol/L (24.0-30.0); PCO2 Venous 43.3 mmHg (38-42); pH Blood Venous 7.47 (7.34-7.37)
[2022-12-27 12:15] LABS: Platelet Count 99 K/mm3 (150-400)
[2022-12-27 13:00] VITALS: BP 125/79
--- NOTE | 2022-12-27 17:51 | NUR ---
TRANSFER FROM ER REPORT RECEIVED. PT ARRIVED VIA GURNEY. AFTER TRANSFER TO NEW BED. PT IS AWAKE AND ALERT. HE ASKED FOR A PAIN PILL. TALKED WITH HIM ABOUT CALLING DR GRANADOS FOR A CONSULT. HE GOT A PAINED EXPRESSION ON HIS FACE AND WHISPERED, "NO." ASKED KHOA IF HE WANTED ME TO CALL DR GRANADOS? HE STATED ,"NO." TOLD HIM, iF HE DOESN'T HAVE DIALYSIS HE WILL . PT STAED, "I DON'T WANT DIALYSIS ANYMORE." WITNESS KATHY NICHOLS AND SONIA NICHOLS. CALLED DR CALABRESE. ORDER FOR COMFORT CARE RECIEVED. ARRIVED. TALKED WITH HER. SHE IS IN AGREEMENT WITH HIS WISHES BYT TEARFUL. MARCO A NICHOLS, [facility], CONTACTED. CONTINUE POC.
--- NOTE | 2022-12-27 18:55 | NUR ---
Called to meet with they had made diffcult decision to stop dialysis pt refuses stating it is to much. Met with omid is tearful stating he is not tolerating treatment and is more painful and short of breath. Sat with her she just lost her mother and two years ago her sister. They moved to town in november and sold their land in [place] because it was to much so she has a lot to grieve. She has significant stress. Therputic conversation and listening. Gave her the gone from my sight book. We reviewed strategies of self care and caregiver stress. Will have chaplian follow up. She states she is not very religous but spiritual. We discussed his spirit and giving him holistic treatment. will get her some grief support. pt resting having some back pain and anexiety will review medication. Pt may be eminent. Will revaluate in am.
--- NOTE | 2022-12-27 20:21 | NUR ---
DIALYSIS NOTE [employer] CALLED IN BY NEPHROLOGY FOR DIALYSIS. REPORT RECIEVED PRIOR TO ARRIVAL TO PT AND INFORMED THAT PT HAD BEEN CHANGED TO COMFORT CARE AND WAS REFUSING DIALYSIS. SET UP DISCARDED AND DR GRANADOS NOTIFIED OF COMFORT CARE STATUS.
--- NOTE | 2022-12-28 01:40 | NUR ---
PATIENT PASSED AT 0110. PATIENT WAS ON COMFORT MEASURES ONLY. NOTIFIED MANAGER SEARCH ENGINE WHO CAME TO BEDSIDE TO PRONOUNCE . DR. RICHEY NOTIFIED OF . CALLED PATIENT AND UPDATED HE ON HER HUSBANDS PASSING. PATIENT STATES THE HOME WOULD BE [facility] ON [address] CONFIRMED PATIENT ADDRESS IS CORRECT IN [place].
== END 2022-12-28 01:10 ==
LOC: ER 10:43 → MEDS 10:44
PROVIDERS: Emergency Medicine; ADMIT Internal Medicine
DX: G92.8 Other toxic encephalopathy (principal); I95.9 Hypotension, unspecified; E88.09 Other disorders of plasma-protein metabolism, not elsewhere classified; I13.2 Hypertensive heart and chronic kidney disease with heart failure and with stage 5 chronic kidney disease, or end stage renal disease; N18.6 End stage renal disease; I50.22 Chronic systolic (congestive) heart failure; E83.52 Hypercalcemia; R34 Anuria and oliguria; R64 Cachexia; R05.1 Acute cough; K70.30 Alcoholic cirrhosis of liver without ascites; Z66 Do not resuscitate; J44.9 Chronic obstructive pulmonary disease, unspecified; G47.33 Obstructive sleep apnea (adult) (pediatric); I27.20 Pulmonary hypertension, unspecified; Z99.2 Dependence on renal dialysis; Z95.5 Presence of coronary angioplasty implant and graft; Z87.891 Personal history of nicotine dependence; Z79.899 Other long term (current) drug therapy
CPT/HCPCS: 70450; 71045; 80047; 80053; 82140; 82803; 83735; 85014; 85025; 93005; 93010; 96365; 96375; 96376; 99285-25; A9270; G0257; G0378; J0612; J2060